=== PATIENT | male | born 2000 | race Caucasian/White ===

== ENCOUNTER 2020-02-29 09:54 | Emergency (ER) | payer OTHER, SELFPAY ==
[2020-02-29 10:00] VITALS: BP 149/96; PULSE 124; RESP 21; TEMP 36.5; O2SAT 99
[2020-02-29 10:33] LABS: Basophils Percent Auto 0.3 % (0.2-1.2); Eosinophils Absolute Auto 0.1 K/mm3 (0-0.3); Eosinophils Percent Auto 0.7 % (0-4.4); Hematocrit 47.1 % (42.0-52.0); Hemoglobin 15.2 g/dL (14.0-18.0); Immature Granulocyte Absolute 0.02 K/mm3 (0.00-0.031); Immature Granulocyte Percent A 0.3 % (0-0.5); Lymphocytes Absolute Auto 1.13 K/mm3 (0.9-3.2); Lymphocytes Percent Auto 16.2 % (18.3-44.2); Mean Corpuscular HGB Conc 32.3 g/dl (32-36); Mean Corpuscular Hemoglobin 28.3 pg (26-34); Mean Corpuscular Volume 87.5 fl (80-100); Mean Platelet Volume 10.6 fl (7.4-10.4); Monocytes Absolute Auto 0.6 K/mm3 (0.1-0.6); Monocytes Percent Auto 8.6 % (2.6-8.5); Neutrophils Absolute Auto 5.2 K/mm3 (1.3-6.7); Neutrophils Percent Auto 73.9 % (45.5-73.1); Platelet Count Result 331 k/mm3 (150-375); Red Blood Count 5.38 M/mm3 (4.6-6.20); Red Cell Distribution Width 12.2 % (11.5-14.5)
[2020-02-29] MEDS: FAMOTIDINE 20 MG/2 ML VIAL IV PUSH (10:50)
[2020-02-29] MEDS: SODIUM CHLORIDE 0.9% IV 1,000 ML 999 ML IV CONT (10:50)
[2020-02-29 10:54] LABS: Alanine Aminotransferase 37 U/L (4-50); Albumin Level 4.7 g/dL (3.7-5.6); Alkaline Phosphatase 89 U/L (58-237); Aspartate Amino Transferase 27 U/L (17-59); Bilirubin,Total 0.4 mg/dL (0.2-1.3); Blood Urea Nitrogen 10 mg/dL (8-21); Calcium 9.5 mg/dL (8.9-10.7); Carbon Dioxide 28 mmol/L (22-30); Chloride 102 mmol/L (98-107); Estimated Glomerular Filt Rate > 60; Glucose 93 mg/dL (75-110); Lipase 55 U/L (23-300); Potassium 3.8 mmol/L (3.4-5.0); Sodium 139 mmol/L (134-143)
[2020-02-29 11:05] LABS: Lactic Acid Reflex 0.7 mmol/L (0.7-2.1)
[2020-02-29 11:46] VITALS: BP 148/72; PULSE 102; RESP 17; O2SAT 98
[2020-02-29 12:06] LABS: Add Urine Microscopic? YES; Amorphous Sediment Urine Few; Appearance Urine Clear (Clear); Bacteria Urine Trace /hpf; Bilirubin Urine Negative (Negative); Blood Urine Negative (Negative); Color Urine Yellow (Yellow); Glucose Urine UA Negative (Negative); Ketones Urine 1+ mg/dL (Negative); Leukocyte Esterase Ur Negative LEU/UL (Negative); Mucus Urine Heavy /lpf; Nitrate Urine Negative (Negative); Protein Urine 1+ mg/dL (Negative); RBC Urine 0-2 /hpf (0-2); Specific Grav Ur 1.017 (1.001-1.035); Squamous Epithelial Cell Urine Rare /hpf (Few); Urobilinogen Urine Negative mg/dL (<2.0); WBC Urine 0-3 /hpf
--- NOTE | 2020-02-29 12:16 | ED.ABDPAIN ---
HPI - Abdominal Pain General Chief Complaint: Abdominal Pain <Kings Dee PA-C - Last Filed: 02/29/20 12:27> Stated Complaint: abd pain n/v/d <JESE Gill Last Filed: 02/29/20 12:27> Time Seen by Provider: 02/29/20 10:07 <Kings Dee PA-C - Last Filed: 02/29/20 12:27> Source: patient <Kings Dee PA-C - Last Filed: 02/29/20 12:27> Mode of arrival: ambulatory <JESE Gill Last Filed: 02/29/20 12:27> History of Present Illness HPI narrative: Patient is a 19-year-old male who presents to emergency department for evaluation of having had an episode of nausea vomiting and diarrhea earlier this morning followed by some more loose stools some nausea vomiting patient took his omeprazole and Carafate which is prescribed by primary care and notes that over the last almost year he has been having GI issues which have been managed primarily by primary care has not seen a specialist. Patient thought it might be a small amount of blood in his emesis today. Patient has had similar occurrences in the past. Patient is unsure as to the etiology of his symptoms <JESE Gill Last Filed: 02/29/20 12:27> Related Data Allergies/Adverse Reactions: Allergies Allergy/AdvReac Type Severity Reaction Status Date / Time No Known Allergies Allergy Verified 02/29/20 10:12 <Kings Dee PA-C - Last Filed: 02/29/20 12:27> Review of Systems Review of Systems: All systems reviewed & are unremarkable except as noted in HPI and below <Kings Dee PA-C - Last Filed: 02/29/20 12:27> PMFSH Social History Social History: Social History Smoking status: Never smoker Alcohol intake: never Gender identity (if verbalized by the patient): Male <JESE Gill Last Filed: 02/29/20 12:27> Exam Narrative: Exam Narrative: GENERAL: Well-appearing, well-nourished, and in no acute distress. HEAD: Normocephalic, atraumatic. EYES: PERRLA and EOMI. ENT: Nares clear, no rhinorrhea or epistaxis. Mucous membranes moist. Oropharynx without tonsillar hypertrophy exudate or other lesions. CHEST: Clear to auscultation. No respiratory distress. No wheezes rales or rhonchi HEART: Regular rate and rhythm. No murmur heard. Normal peripheral pulses. ABDOMEN: Soft, nontender, nondistended EXTREMITIES: Normal range of motion. No edema. SKIN: Warm, dry, no rash. NEURO: No focal deficits. Alert and oriented x3. Cranial nerves II through XII grossly intact. Normal speech PSYCH: Normal mood and affect. <JESE Gill Last Filed: 02/29/20 12:27> Course Course Emergency Course: Patient in the room resting comfortably feeling much better at this time was given antacids and fluids tolerating p.o. intake without emesis Aware of case findings treatment plan and diagnosis agreeing to follow-up as instructed with gastroenterology <JESE Gill Last Filed: 02/29/20 12:27> Vital Signs Vital signs: Vital Signs Temperature 97.7 F 02/29/20 10:00 Pulse Rate 124 H 02/29/20 10:00 Respiratory Rate 21 H 02/29/20 10:00 Blood Pressure 149/96 H 02/29/20 10:00 Pulse Oximetry 99 02/29/20 10:00 Temperature 97.7 F 02/29/20 10:00 Pulse Rate 89 02/29/20 12:37 Respiratory Rate 17 02/29/20 12:37 Blood Pressure 138/72 02/29/20 12:37 Pulse Oximetry 98 02/29/20 12:37 <Kings Dee PA-C - Last Filed: 02/29/20 12:27> Vital Signs Temperature 97.7 F 02/29/20 10:00 Pulse Rate 124 H 02/29/20 10:00 Respiratory Rate 21 H 02/29/20 10:00 Blood Pressure 149/96 H 02/29/20 10:00 Pulse Oximetry 99 02/29/20 10:00 Temperature 97.7 F 02/29/20 10:00 Pulse Rate 89 02/29/20 12:37 Respiratory Rate 17 02/29/20 12:37 Blood Pressure 138/72 02/29/20 12:37 Pulse Oximetry 98 02/29/20 12:37 <Amanda Mary MD - Last Filed: 02/28
[2020-02-29 12:37] VITALS: BP 138/72; PULSE 89; RESP 17; O2SAT 98
== END 2020-02-29 12:38 | disposition home or self-care (01) ==
PROVIDERS: Emergency Medicine Emergency Medical Services; Emergency Provider Emergency Medicine; PCP Family Medicine
DX: R10.9 Unspecified abdominal pain (principal)
CPT/HCPCS: 36415; 80053; 81001; 83605; 83690; 85025; 96361; 96374; 99284; J7030

== ENCOUNTER → 2020-06-05 09:29 | Outpatient (CLI) | payer OTHER, SELFPAY ==
--- NOTE | ~2020-06-05 | MR_ITS ---
EXAMINATION: MR thoracic spine wo con DATE: 06/05/2020 10:30 INDICATION: Left shoulder pain TECHNIQUE: Magnetic resonance imaging (MRI) of the thoracic spine was performed without intravenous c ontrast. Sagittal localizer T1-weighted FSE of the cervicothoracic spine was obtained. Thoracic spine sequences included sagittal T2-weighted FSE, sagittal T1-weighted SE, Sagittal T2-weighted FS FSE, a nd axial T2-weighted FSE. COMPARISON: None FINDINGS: Alignment is normal.Minimal likely physiologic anterior wedging at T11 and T12. Remaining vertebral b jr heights are normal. Normal marrow signal.Normal intervertebral disc heights and signal. Tiny righ t paracentral disc protrusion at T3-T4. The remaining discs do not extend beyond the endplate margins . No central canal stenosis. No neural foraminal stenosis. There is normal spinal cord signal. IMPRESSION: 1. Tiny right paracentral disc protrusion at T3-T4 with no significant central canal stenosis. 2. Minimal likely physiologic anterior wedging at T11 and T12. Reviewed, dictated and finalized at location B.
--- NOTE | ~2020-06-05 | MR_ITS ---
EXAMINATION: MR shoulder LT wo con DATE: 06/05/2020 10:31 INDICATION: Left shoulder pain TECHNIQUE: Magnetic resonance imaging (MRI) of the left shoulder was performed without intravenous co ntrast. Sequences included axial PD-weighted FS FSE, coronal oblique PD-weighted FS FSE, coronal obli que T2-weighted FS FSE, sagittal PD-weighted FS FSE, and sagittal T1-weighted SE. COMPARISON: Left shoulder radiographs dated 05/23/2020 FINDINGS: Coracoacromial arch: The acromion undersurface is curved in morphology (type II). The coracoacromial ligament is normal. A cromioclavicular joint is normal. Rotator cuff: The supraspinatus, infraspinatus and teres minor tendons are normal. The subscapularis tendon is norm al. Normal rotator cuff muscle bulk and signal. Biceps tendon, glenoid labrum and glenohumeral cartilage: Long head of the biceps tendon is normal. Glenoid labrum is normal with normal subtle labral sulcus a nd foramen at the anterosuperior glenoid. Glenohumeral cartilage is normal. Fluid: Physiologic amount of fluid in the glenohumeral joint and biceps tendon sheath. No loose osteochondra l bodies. Small amount of fluid in the subacromial/subdeltoid bursa consistent with mild bursitis. Bones: Normal marrow signal with no edema, fracture or abnormal marrow replacing process. IMPRESSION: 1. Normal left shoulder MRI. Reviewed, dictated and finalized at location B.
== END ==
PROVIDERS: Visit Provider Nurse Practitioner Family
DX: M25.512 Pain in left shoulder (principal)
CPT/HCPCS: 72146; 73221

== ENCOUNTER 2021-04-10 18:06 | Outpatient (CLI) | payer OTHER, SELFPAY ==
--- NOTE | ~2021-04-10 | XR_ITS ---
XR hip RT min 2V DATE: 04/10/2021 18:25 INDICATION: Right hip and groin pain. No injury. TECHNIQUE: AP, lateral, crosstable lateral views of right hip COMPARISON: None FINDINGS: The pubic symphysis and sacroiliac joints are intact. No fracture or dislocation, avascular necrosis or bone destruction of the right hip. Inferomedial right hip joint space narrowing is suggested. Consider comparison left hip views. IMPRESSION: Possible inferomedial right hip joint space narrowing; consider left hip comparison views Reviewed, dictated and finalized at location A. IMPRESSION: Possible inferomedial right hip joint space narrowing; consider lef t hip comparison views
--- NOTE | ~2021-04-10 | XR_ITS ---
XR shoulder RT min 2V DATE: 04/10/2021 18:27 INDICATION: Anterior proximal humeral pain. No injury. TECHNIQUE: 4 views COMPARISON: None FINDINGS: No fracture or dislocation, periosteal reaction or bone destruction or abnormal soft tissue calcification. Normal alignment at the acromioclavicular and glenohumeral joints. IMPRESSION: Normal examination Reviewed, dictated and finalized at location A. IMPRESSION: Normal examination
== END 2021-04-10 18:07 | disposition home or self-care (01) ==
LOC: ANHIMG 18:09
PROVIDERS: PCP Family Medicine; Visit Provider Physician Assistant
DX: M25.559 Pain in unspecified hip (principal); M25.519 Pain in unspecified shoulder
CPT/HCPCS: 73030; 73502

== ENCOUNTER 2021-04-12 18:30 | Outpatient (CLI) | payer OTHER, SELFPAY ==
--- NOTE | ~2021-04-12 | XR_ITS ---
XR hip LT min 2V DATE: 04/12/2021 18:46 INDICATION: Left hip pain TECHNIQUE: AP, lateral, coned lateral lumbosacral views COMPARISON: None FINDINGS: No fracture or dislocation, avascular necrosis or bone destruction. Left hip joint space is well preserved. IMPRESSION: Asymmetric right hip joint space narrowing inferomedially Reviewed, dictated and finalized at location A.
== END 2021-04-12 18:31 | disposition home or self-care (01) ==
LOC: ANHIMG 18:32
PROVIDERS: PCP Family Medicine; Visit Provider Physician Assistant
DX: M25.559 Pain in unspecified hip (principal); R93.6 Abnormal findings on diagnostic imaging of limbs
CPT/HCPCS: 73502

== ENCOUNTER → 2021-05-31 14:41 | Outpatient (CLI) | payer OTHER, SELFPAY ==
--- NOTE | ~2021-05-31 | MR_ITS ---
EXAMINATION: MR hip RT wo con DATE: 05/31/2021 15:43 INDICATION: Right hip pain TECHNIQUE: Magnetic resonance imaging (MRI) of the right hip was performed without intravenous contr ast. Sequences included full-field axial PD-weighted FS FSE and T1-weighted FSE, coronal of the pelvi s with PD-weighted FS FSE, T2-weighted FSE and T1-weighted FSE, small field of view of the right hip with axial PD-weighted FS FSE, sagittal PD-weighted FS FSE, coronal PD-weighted FS FSE and coronal T2 weighted FSE. Additional radial T1-weighted FGR oriented orthogonal to the acetabular rim were obt ained for evaluation of the labrum. COMPARISON: Right hip radiographs dated 04/10/2021 FINDINGS: Bones/labrum/cartilage: Alignment is normal. No fracture, avascular necrosis or pathologic marrow replacing process. Low sig nal intensity bone islands in the proximal right femoral diaphysis, left femoral head and subtrochant madeline proximal left femur. Labrum is normal. Mild osteoarthritis at the right hip with partial thickne ss cartilage loss resulting in nonuniform joint space narrowing at the posterior superior aspect of t he joint space. The cartilage surface appears smooth and there are no degenerative subchondral change s. Visualized lower lumbar spine and bilateral sacral iliac joints are normal. Fluid: Symmetric physiologic amount of fluid within both hip joints. No bursitis or other abnormal fluid col lections. Soft tissues: Normal and symmetric muscle bulk and signal in the pelvis and visualized proximal thighs. The iliopso as, gluteal and proximal hamstring tendons are normal. Limited evaluation of visceral organs of the p yudith is unremarkable. No pathologically enlarged pelvic/inguinal lymphadenopathy. IMPRESSION: 1. Mild right hip osteoarthritis with normal labrum. Otherwise unremarkable right hip MRI. Reviewed, dictated and finalized at location A. IMPRESSION: 1. Mild right hip osteoarthritis with normal labrum. Otherwise unremarkable rig ht hip MRI.
== END ==
PROVIDERS: Visit Provider Nurse Practitioner Family
DX: M16.11 Unilateral primary osteoarthritis, right hip (principal)
CPT/HCPCS: 73721

== ENCOUNTER 2024-05-19 12:09 | Emergency (ER) | payer OTHER, SELFPAY ==
[2024-05-19] VITALS (10 sets, daily range): BP systolic 108–131; BP diastolic 60–74; PULSE 117–135; RESP 16–23; TEMP 36.7–39.3; O2SAT 92–99
--- NOTE | ~2024-05-19 | CT_ITS ---
CT of the Abdomen and Pelvis: Indication: Abdominal pain Technique: 2.5 mm axial scans were obtained through the abdomen and pelvis following intravenous adm inistration of 100 cc of Omnipaque 350. Dose reduction technique was used on this scan by utilizing a utomated exposure control and iterative reconstruction technique. The dose-length product (DLP) was 6 25.80 mGy-cm. Findings: Scans through the lung bases are unremarkable. The liver, spleen, pancreas, gallbladder, adrenals and kidneys are within normal limits. No evidence of aortic aneurysm. No lymphadenopathy. There is wall thickening of multiple distal small bowel loops in the pelvis. No distinct abscess or f ree air. No bowel obstruction. Images through the pelvis were performed. Urinary bladder unremarkable. No pelvic mass seen. No ascit es. Impression: Nonspecific small bowel infectious/inflammatory enteritis, extensively involving pelvic small bowel l oops. Reviewed, dictated and finalized at [facility]. Impression: Nonspecific small bowel infectious/inflammatory enteritis, extensively involvin g pelvic small bowel loops.
--- NOTE | ~2024-05-19 | XR_ITS ---
XR chest 1V portable Ordering provider: Adiel Potts MD History: 23 years Male with . FEVER, WEAKNESS X 4WKS . Comparison: June 04, 2020 FINDINGS: MEDIASTINUM: The cardiac silhouette is not enlarged. LUNGS: No infiltrates, effusions or pneumothorax. OTHER: No free air under the diaphragm. IMPRESSION: No acute cardiopulmonary pathology. Reviewed, dictated and finalized at location A.
--- NOTE | 2024-05-19 12:26 | ECG_ITS ---
Test Date: 2024-05-19 13:03:50 Measurements Intervals [place] Rate: 118 P: 18 HI: 146 QRS: 7 QRSD: 105 T: 29 QT: 295 QTc: 415 Interpretive Statements SINUS TACHYCARDIA INCOMPLETE RIGHT BUNDLE BRANCH BLOCK ABNORMAL ECG ABNORMAL RHYTHM ECG No previous ECG available for comparison Electronically Signed On 05-19-2024 13:14:48 CDT by Dave Harrison D.O.
--- NOTE | 2024-05-19 12:36 | ED.GENADULT ---
HPI - General Adult General Chief complaint: Nausea/Vomiting/Diarrhea Stated complaint: N/V x1 day, diarrhea x2 weeks Time Seen by Provider: 05/19/24 12:19 History of Present Illness HPI narrative: This is a 23-year-old male presenting ED with chief complaint of flu-like symptoms. For the last week patient has been having headaches body aches fevers nausea vomiting and diarrhea. He has also been having some crampy lower abdominal pain. He denies chest pain or difficulty breathing although he has had a dry cough. Related Data Allergies Allergy/AdvReac Type Severity Reaction Status Date / Time No Known Allergies Allergy Verified 05/19/24 12:50 [facility] Past Medical History Medical History Acute gastritis Chronic headaches Diarrhea Impingement syndrome, shoulder, left Labral tear of hip joint Labral tear of long head of left biceps tendon Left shoulder pain Nausea & vomiting Scapular dysfunction Scoliosis of thoracic spine Seasonal allergies Stomach pain Subacromial bursitis of left shoulder joint Vision abnormalities Social History Social History Smoking status: Never smoker Alcohol intake: never Substance use: unknown Occupation/Education: occupation 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 Gender identity (if verbalized by the patient): Male Exam Narrative: APPEARANCE: No apparent distress. Head: atraumatic. EYES: EOMI, NOSE: Atraumatic NECK: Trachea midline RESPIRATORY: No increased rate of breathing, CTAB CARDIOVASCULAR: Tachycardic, no peripheral edema ABDOMINAL: Soft, mild tenderness in the lower quadrants equal on left and right MUSCULOSKELETAl: No obvious deformities NEURO: Alert. Moving 4/4 extremities SKIN:: Warm, dry. Normal color PSYCHIATRIC: Normal affect Course Vital Signs Vital signs: Vital Signs Temperature 102.7 F H 05/19/24 12:12 Pulse Rate 129 H 05/19/24 12:12 Respiratory Rate 20 05/19/24 12:12 Blood Pressure 131/74 05/19/24 12:12 Pulse Oximetry 99 05/19/24 12:12 Oxygen Delivery Room Air 05/19/24 12:12 Temperature 98.0 F 05/19/24 14:12 Pulse Rate 122 H 05/19/24 13:59 Respiratory Rate 22 H 05/19/24 13:46 Blood Pressure 108/60 05/19/24 13:45 Pulse Oximetry 95 05/19/24 13:46 Oxygen Delivery Room Air 05/19/24 12:12 Medical Decision Making [facility] Narrative Medical decision making narrative: -Course: 23-year-old male presenting with nausea vomiting diarrhea and fevers. CT abdomen pelvis showed inflammation of the small bowel. Patient was given fluid resuscitation, antipyretics and antiemetics. On re-evaluation patient is feeling much better. He is tolerating p.o.. He is still slightly tachycardic although it is line his fever. We discussed admission versus discharge and given the patient's overall health and young age he would like a trial of outpatient management. Patient was educated on strict return precautions. He has been given medications in the liquid form as he has trouble swallowing pills. He is encouraged to return to the ED if his condition does not improve, he develops severe abdominal pain bloody diarrhea intractable nausea vomiting. -DDX includes but is not limited to: Pneumonia, viral syndrome gastroenteritis, UTI, sepsis -Independent interpretation of studies: White count 8.5 Metabolic panel normal Urine not indicative infection Viral swabs negative Chest x-ray normal CT abdomen pelvis showed enteritis Independent EKG interpretation: Rhythm [sinus], Rate [118], [place] -[normal], MA -[normal], QRS [narrow], QTC [normal], T waves -[negative for concerning inversions], ST Segments - [Negative for concerning elevations] Final interpretations: Sinus tachycardia -Interventions: 3 L normal saline Toradol, Zofran, Tylenol -Shared decision making / Disposition: Discharge Vi
[2024-05-19] MEDS: SODIUM CHLORIDE 0.9% IV 3,000 ML 999 ML IV CONT (12:51)
[2024-05-19] MEDS: KETOROLAC 15 MG/ML VIAL (*BKC) IV PUSH (12:53)
[2024-05-19 12:55] LABS: Add Urine Microscopic? YES; Appearance Urine Clear (Clear); Bacteria Urine None Seen /hpf; Bilirubin Urine Negative (Negative); Blood Urine Negative (Negative); Color Urine Yellow (Yellow); Glucose Urine UA Negative (Negative); Ketones Urine Trace mg/dL (Negative); Leukocyte Esterase Ur Negative LEU/UL (Negative); Nitrate Urine Negative (Negative); Non Pathogenic Casts 0-2; Protein Urine Trace mg/dL (Negative); Specific Grav Ur 1.018 (1.001-1.035); Squamous Epithelial Cell Urine None Seen /hpf (Few); WBC Urine 0-5 /hpf (0-3)
[2024-05-19 12:57] LABS: Basophils Percent Auto 0.2 % (0.2-1.2); Eosinophils Percent Auto 0.1 % (0-4.4); Hematocrit 42.5 % (42.0-52.0); Hemoglobin 13.5 g/dL (14.0-18.0); Immature Granulocyte Absolute 0.04 K/mm3 (0.00-0.031); Immature Granulocyte Percent A 0.5 % (0-0.5); Lymphocytes Absolute Auto 0.17 K/mm3 (0.9-3.2); Mean Corpuscular HGB Conc 31.8 g/dl (32-36); Mean Corpuscular Hemoglobin 26.6 pg (26-34); Mean Corpuscular Volume 83.7 fl (80-100); Mean Platelet Volume 9.5 fl (7.4-10.4); Monocytes Absolute Auto 0.5 K/mm3 (0.1-0.6); Monocytes Percent Auto 5.3 % (2.6-8.5); Neutrophils Absolute Auto 7.9 K/mm3 (1.3-6.7); Neutrophils Percent Auto 91.9 % (45.5-73.1); Platelet Count Result 309 k/mm3 (150-375); Red Blood Count 5.08 M/mm3 (4.6-6.20); Red Cell Distribution Width 13.5 % (11.5-14.5); White Blood Count 8.5 K/mm3 (4.5-10.0)
[2024-05-19] MEDS: ACETAMINOPHEN ELIXIR 325 MG/10.15 ML UDC 975 MG PO (12:58)
[2024-05-19 13:05] LABS: Chloride 97 mmol/L (98-107)
[2024-05-19 13:14] LABS: Alanine Aminotransferase 53 U/L (6-50); Albumin Level 4.5 g/dL (3.5-5.1); Alkaline Phosphatase 107 U/L (38-126); Anion Gap 9 mmol/L (4-12); Aspartate Amino Transferase 43 U/L (17-59); Bilirubin,Total 0.6 mg/dL (0.2-1.3); Blood Urea Nitrogen 9 mg/dL (9-20); Calcium 8.7 mg/dL (8.4-10.2); Carbon Dioxide 29 mmol/L (22-30); Estimated CRCL calculation 130 ml/min; Estimated Glomerular Filt Rate > 60; Glucose 108 mg/dL (65-110); Lipase 45 U/L (23-300); Potassium 3.9 mmol/L (3.4-5.0); Sodium 135 mmol/L (137-145)
[2024-05-19 13:24] LABS: Influenza A QL RT-PCR Negative (Negative); Influenza B QL RT-PCR Negative (Negative); RSV RNA, RT-PCR Negative (Negative); SARS-CoV-2 RNA PCR Negative (Negative)
== END 2024-05-19 15:20 | disposition home or self-care (01) ==
PROVIDERS: Emergency Medicine; Emergency Provider Emergency Medicine
DX: K52.9 Noninfective gastroenteritis and colitis, unspecified (principal); Z20.822 Contact with and (suspected) exposure to COVID-19
CPT/HCPCS: 36415; 71045; 74177; 80053; 81001; 83690; 85025; 87637; 93005; 96361; 96374; 99284; A9270; J1885; J7030; Q9967

== ENCOUNTER 2024-07-20 13:33 | Inpatient (IN) | payer OTHER, SELFPAY ==
--- NOTE | ~2024-07-20 | CT_ITS ---
EXAMINATION: CT abdomen pelvis w con DATE: 07/20/2024 16:21 INDICATION: RLQ pain TECHNIQUE: Computed tomography (CT) of the abdomen and pelvis was performed with 100 mL Omnipaque-350 intravenous contrast. Automated exposure control and iterative reconstruction technique were employe d. The dose-length product was 415.66 mGy-cm. COMPARISON: None. FINDINGS: Lower thorax: Mild bilateral gynecomastia. Liver: Small focus of branching intrahepatic gas in the peripheral and anti-dependent portion of the left lobe. Biliary/Gallbladder: Gallbladder is normal. No bile duct dilation. Pancreas: No mass or duct dilation. Spleen: Normal. Adrenals:No mass. Kidneys: No suspicious mass, obstructing stone, or hydronephrosis. GI tract: Distal ileal wall edema. No small or large bowel dilation. Normal appendix. Mesentery/Peritoneum: No free air. Irregular soft tissue density in the mesentery of the deep pelvis between a loop of edematous ileum and the adjacent sigmoid (axial image [id number]), with mesenteric edema, hyperemia, and minimal mesenteric fluid. Retroperitoneum: No mass. Pelvis: Pelvic organs are within normal limits. Soft Tissues: Soft tissues and body wall unremarkable. Bones: No acute osseous finding. IMPRESSION: Ileal enteritis with adjacent phlegmon/early abscess and possible fistulous connection to the adjacen t sigmoid. Intrahepatic gas, concerning for portal venous gas, which can be seen with ischemic bowel, inflammato ry bowel disease, and pelvic abscess. Correlate for clinical findings of sepsis. Results reported telephonically to Dr. Ferreira by Dr. Buitrago at 4:49 PM on 07/20/2024. Reviewed, dictated and finalized at location K. [employer] IMPRESSION: Ileal enteritis with adjacent phlegmon/early abscess and possible fistulous con nection to the adjacent sigmoid. Intrahepatic gas, concerning for portal venous gas, which can be seen with isch emic bowel, inflammatory bowel disease, and pelvic abscess. Correlate for clini joanna findings of sepsis. Results reported telephonically to Dr. Ferreira by Dr. Buitrago at 4:49 PM on .
--- NOTE | ~2024-07-20 | MR_ITS ---
EXAMINATION: MR abdomen wo/w con DATE: 07/21/2024 13:12 INDICATION: Crohn disease. Right lower quadrant abdominal pain. TECHNIQUE: Magnetic resonance imaging (MRI) of the abdomen was performed without and with 17 mL Multi Aimee intravenous contrast. COMPARISON: CT abdomen and pelvis 07/20/2024 FINDINGS: The liver, gallbladder, pancreas, adrenal glands, and kidneys are normal. There is an 8 mm cyst in th e spleen. There are no dilated loops of bowel. Partially visualized is wall thickening of the termina l ileum. There are no pathologically enlarged lymph nodes. There is no free intraperitoneal fluid. IMPRESSION: 1. Partially visualized terminal ileitis, consistent with Crohn disease. Reviewed, dictated and finalized at location A. BURNER
--- NOTE | ~2024-07-20 | MR_ITS ---
EXAMINATION: MR pelvis wo/w con DATE: 07/21/2024 13:13 INDICATION: Crohn disease. TECHNIQUE: Magnetic resonance imaging (MRI) of the pelvis was performed without and with 17 mL MultiH ance intravenous contrast. COMPARISON: CT abdomen and pelvis 07/20/2024 FINDINGS: There are no dilated loops of bowel. There is wall thickening of the distal 30 cm of terminal ileum w ith surrounding fat stranding. The fat stranding abuts the rectosigmoid, which demonstrates wall thic kening. There is no drainable abscess. There are no pathologically enlarged lymph nodes. There is no free intraperitoneal fluid. IMPRESSION: 1. Terminal ileitis with fistula to the wall of the rectosigmoid, consistent with Crohn disease. Reviewed, dictated and finalized at location A. [employer]EL[employer] IMPRESSION: 1. Terminal ileitis with fistula to the wall of the rectosigmoid, consistent wi th Crohn disease.
[2024-07-20 13:37] VITALS: BP 120/79; PULSE 122; RESP 16; TEMP 37.2; O2SAT 100
[2024-07-20 14:10] LABS: Basophils Percent Auto 0.2 % (0.2-1.2); Hematocrit 41.5 % (42.0-52.0); Hemoglobin 13.2 g/dL (14.0-18.0); Immature Granulocyte Absolute 0.03 K/mm3 (0.00-0.031); Immature Granulocyte Percent A 0.5 % (0-0.5); Lymphocytes Absolute Auto 0.25 K/mm3 (0.9-3.2); Lymphocytes Percent Auto 3.8 % (18.3-44.2); Mean Corpuscular HGB Conc 31.8 g/dl (32-36); Mean Corpuscular Hemoglobin 26.4 pg (26-34); Mean Platelet Volume 9.7 fl (7.4-10.4); Monocytes Absolute Auto 0.4 K/mm3 (0.1-0.6); Monocytes Percent Auto 6.2 % (2.6-8.5); Neutrophils Absolute Auto 5.9 K/mm3 (1.3-6.7); Neutrophils Percent Auto 89.3 % (45.5-73.1); Platelet Count Result 344 k/mm3 (150-375); Red Cell Distribution Width 12.9 % (11.5-14.5); White Blood Count 6.6 K/mm3 (4.5-10.0)
[2024-07-20 14:20] LABS: Alanine Aminotransferase 29 U/L (6-50); Albumin Level 4.5 g/dL (3.5-5.1); Alkaline Phosphatase 90 U/L (38-126); Anion Gap 11 mmol/L (4-12); Aspartate Amino Transferase 29 U/L (17-59); Bilirubin,Total 0.7 mg/dL (0.2-1.3); Blood Urea Nitrogen 8 mg/dL (9-20); Calcium 8.9 mg/dL (8.4-10.2); Carbon Dioxide 26 mmol/L (22-30); Chloride 97 mmol/L (98-107); Estimated CRCL calculation 130 ml/min; Estimated Glomerular Filt Rate > 60; Glucose 102 mg/dL (65-110); Lipase 36 U/L (23-300); Potassium 3.6 mmol/L (3.4-5.0); Sodium 134 mmol/L (137-145)
[2024-07-20 16:04] LABS: Add Urine Microscopic? YES; Appearance Urine Clear (Clear); Bacteria Urine None Seen /hpf; Bilirubin Urine Negative (Negative); Blood Urine Negative (Negative); Color Urine Yellow (Yellow); Glucose Urine UA Negative (Negative); Ketones Urine 3+ mg/dL (Negative); Leukocyte Esterase Ur Negative LEU/UL (Negative); Nitrate Urine Negative (Negative); Non Pathogenic Casts 0-2; Protein Urine 1+ mg/dL (Negative); RBC Urine 0-2 /hpf (0-2); Squamous Epithelial Cell Urine None Seen /hpf (Few); WBC Urine 0-5 /hpf (0-3)
[2024-07-20] MEDS: KETOROLAC 15 MG/ML VIAL (*BKC) IV PUSH (16:27)
[2024-07-20] MEDS: LACTATED RINGERS 1,000 ML 999 ML IV CONT (16:27)
[2024-07-20] MEDS: ONDANSETRON INJ 4 MG/2 ML VIAL IV PUSH ×2 (16:27→21:20)
--- NOTE | 2024-07-20 17:02 | ED.NAVMDI ---
HPI - Nausea/Vomiting/Diarrhea General Chief complaint: Nausea/Vomiting/Diarrhea Stated complaint: back pain, fever, vomiting and diarrhea Time Seen by Provider: 07/20/24 15:44 History of Present Illness HPI Narrative: 23-year-old otherwise healthy male presenting to the emergency room with chief complaint of right lower quadrant abdominal pain associated with nausea and vomiting as well as diarrhea. He has been having intermittent fever since Friday and some back discomfort. Patient was seen in April was similar symptoms and diagnosed with enteritis and sent home with a course of antibiotics and symptom controlling medications. He had improvement at that time and has been doing well since. Has not followed up with his primary care provider. Today presents with similar symptoms to what brought him in April. Denies any chest pain, difficulty breathing, headache, vision changes, bloody diarrhea, difficulty urinating or any masses or hernias. No trauma or other recent illnesses. Related Data Allergies Allergy/AdvReac Type Severity Reaction Status Date / Time No Known Allergies Allergy Verified 07/20/24 15:53 Review of Systems Review of Systems: As reviewed above in [facility]PI [facility] Past Medical History Medical History Acute gastritis Chronic headaches Diarrhea Impingement syndrome, shoulder, left Labral tear of hip joint Labral tear of long head of left biceps tendon Left shoulder pain Nausea & vomiting Scapular dysfunction Scoliosis of thoracic spine Seasonal allergies Stomach pain Subacromial bursitis of left shoulder joint Vision abnormalities Social History Social History Smoking status: Never smoker Alcohol intake: never Substance use: unknown Occupation/Education: occupation 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 Gender identity (if verbalized by the patient): Male Exam Narrative: GENERAL: Overall uncomfortable appearing but not in acute distress, able answer my questions appropriately. Appears well-developed and well-nourished HEAD: [Normocephalic, atraumatic.] EYES: [PERRLA and EOMI.] ENT: Nares clear, no rhinorrhea or epistaxis. Mucous membranes moist. NECK: Supple. CHEST: [Clear to auscultation. No respiratory distress.] HEART: [Regular rate and rhythm]. No murmur heard. [Normal peripheral pulses.] ABDOMEN: [Soft, nondistended], tenderness to palpation in the right lower quadrant and right flank, [No rigidity or guarding] negative Ferris sign, negative Rovsing and psoas sign EXTREMITIES: Normal range of motion. [No edema.] SKIN: Warm, dry, no rash. NEURO: [No focal deficits]. Alert and oriented [x3.] PSYCH: [Normal mood and affect.] Course Vital Signs Vital signs: Vital Signs Temperature 37.2 C 07/20/24 13:37 Pulse Rate 122 H 07/20/24 13:37 Respiratory Rate 16 07/20/24 13:37 Blood Pressure 120/79 07/20/24 13:37 Pulse Oximetry 100 07/20/24 13:37 Temperature 37.2 C 07/20/24 13:37 Pulse Rate 110 H 07/20/24 17:46 Respiratory Rate 20 07/20/24 17:46 Blood Pressure 136/73 07/20/24 17:46 Pulse Oximetry 99 07/20/24 17:46 MDM - Nausea/Vomiting/Diarrhea MDM Narrative Medical decision making narrative: 23-year-old male presenting with nonspecific nausea, vomiting, diarrhea and back pain. He has had intermittent fever since Friday. Was seen in April for similar findings and was discovered to have enteritis with some concerning CT scan findings that required antibiotics. He has a tender right lower quadrant and does appear uncomfortable but not any acute distress. He is tachycardic with a pulse of 120 but afebrile. No hypoxia, blood pressure concerns. Presently given the right lower quadrant abdominal pain differential for intra-abdominal process such as appendicitis, enteritis, small bowel obstruction, cholelithiasis, pancreatitis, renal stone. Inflammatory bowel disease or IBS also possible. A workup was ordered including a CBC, CMP, lipase, urinalysis and a CT scan with IV contrast. We gave him symptom control with Toradol for pain, Zofran and fluid bolus for symptom control. Laboratory studies showed no leukocytosis or anemia. Normal platelet level. Electrolytes all within normal limits, normal renal function panel, normal hepatic function panel, negative lipase. Urinalysis without any signs of infection but did have 3+ ketones and 1+ protein. CT scan of the abdomen pelvis was independent reviewed by myself and does have some concerning findings in the right lower quadrant with significant inflammatory changes. Radiologist Dr. Buitrago called me over the phone to discuss the CT findings. He has ileal enteritis with adjacent phlegmon and potentially early abscess formation with a possible fistulous connection to the adjacent sigmoid colon. There is intrahepatic free gas consistent with portal venous gas which raises suspicion for inflammatory bowel disease or even ischemic bowel in the right clinical context. Lactic acid was ordered this time including a CRP and ESR, lactic acid was negative but the inflammatory markers were elevated. Clinical picture consistent with inflammatory bowel disease at this time and juncture. I did consult Gastroenterology Dr. Ty over the phone we discussed patient's findings of the CT scan, his clinical exam, laboratory assessment and plan of care going forward. He did concur that this sure sounded like a patient with a picture resembling inflammatory bowel disease such as Crohn's colitis. Recommendations for antibiotic therapy including ciprofloxacin Flagyl and to be made NPO at midnight fo any potential procedures such as endoscopies. Patient requires admission to the hospital at this time. I did discuss the case with the hospitalist being covered by the [facility] at this time and he was accepted to the [facility] for further evaluation and treatment on inpatient basis. I informed the patient of his CT scan findings and plan of care for admission and GI evaluation and he was agreeable to the plan of care and successfully admitted this time from the ER. Medical Records Attestation: I reviewed the patient's medical records. Lab Data Attestation: I reviewed the patient's lab results. 07/20/24 14:00 07/20/24 14:00 Labs: Lab Results 07/20/24 07/20/24 07/20/24 Range/Units 13:59 14:00 15:54 WBC 6.6 (4.5-10.0) K/mm3 RBC 5.00 (4.6-6.20) M/mm3 Hgb 13.2 L (14.0-18.0) g/dL Hct 41.5 L (42.0-52.0) % MCV 83.0 (80-100) fl MCH 26.4 (26-34) pg MCHC 31.8 L (32-36) g/dl RDW 12.9 (11.5-14.5) % Plt Count 344 (150-375) k/mm3 MPV 9.7 (7.4-10.4) fl Immature Gran % (Auto) 0.5 (0-0.5) % Neut % (Auto) 89.3 H (45.5-73.1) % Lymph % (Auto) 3.8 L (18.3-44.2) % [place] % (Auto) 6.2 (2.6-8.5) % Eos % (Auto) 0.0 (0-4.4) % Baso % (Auto) 0.2 (0.2-1.2) % Lymph # (Auto) 0.25 L (0.9-3.2) K/mm3 [place] # (Auto) 0.4 (0.1-0.6) K/mm3 Eos # (Auto) 0.0 (0-0.3) K/mm3 Baso # (Auto) 0.0 (0.0-0.1) K/mm3 Abs Immat Gran (auto) 0.03 (0.00-0.031) K/mm3 Absolute Neuts (auto) 5.9 (1.3-6.7) K/mm3 Absolute Nucleated RBC 0.000 (0.0-0.012) K/mm3 Nucleated RBC % 0.0 (0.0-0.2) % ESR (0-20) mm/hr Sodium 134 L (137-145) mmol/L Potassium 3.6 (3.4-5.0) mmol/L Chloride 97 L (98-107) mmol/L Carbon Dioxide 26 (22-30) mmol/L Anion Gap 11 (4-12) mmol/L BUN 8 L (9-20) mg/dL Creatinine 0.90 (0.7-1.3) mg/dL Estim Creat Clear Calc 130 ml/min Estimated GFR > 60 (59 - ) Glucose 102 (65-110) mg/dL Lactic Acid (0.7-2.0) mmol/L Calcium 8.9 (8.4-10.2) mg/dL Total Bilirubin 0.7 (0.2-1.3) mg/dL AST 29 (17-59) U/L ALT 29 (6-50) U/L Alkaline Phosphatase 90 (38-126) U/L C-Reactive Protein 13.8 H (<1.0) mg/dL Total Protein 8.0 (6.3-8.2) g/dL Albumin 4.5 (3.5-5.1) g/dL Lipase 36 (23-300) U/L Urine Color Yellow (Yellow) Urine Appearance Clear (Clear) Urine pH 6.0 (5.0-9.0) Ur Specific [place] 1.020 (1.001-1.035) Urine Protein 1+ H (Negative) mg/dL Urine Glucose (UA) Negative (Negative) mg/dL Urine Ketones 3+ H (Negative) mg/dL Ur Blood (Man) Negative (Negative) Urine Nitrate Negative (Negative) Urine Bilirubin Negative (Negative) Urine Urobilinogen 1.0 (<2.0) mg/dL Leukocyte Esterase Rfl Negative (Negative) JEFF/UL Urine RBC 0-2 (0-2) /hpf Urine WBC 0-5 (0-3) /hpf Ur Squamous Epith Cells None seen (Few) /hpf Urine Bacteria None seen /hpf Urine Casts 0-2 07/20/24 Range/Units 17:13 WBC (4.5-10.0) K/mm3 RBC (4.6-6.20) M/mm3 Hgb (14.0-18.0) g/dL Hct (42.0-52.0) % MCV (80-100) fl MCH (26-34) pg MCHC (32-36) g/dl RDW (11.5-14.5) % Plt Count (150-375) k/mm3 MPV (7.4-10.4) fl Immature Gran % (Auto) (0-0.5) % Neut % (Auto) (45.5-73.1) % Lymph % (Auto) (18.3-44.2) % [place] % (Auto) (2.6-8.5) % Eos % (Auto) (0-4.4) % Baso % (Auto) (0.2-1.2) % Lymph # (Auto) (0.9-3.2) K/mm3 [place] # (Auto) (0.1-0.6) K/mm3 Eos # (Auto) (0-0.3) K/mm3 Baso # (Auto) (0.0-0.1) K/mm3 Abs Immat Gran (auto) (0.00-0.031) K/mm3 Absolute Neuts (auto) (1.3-6.7) K/mm3 Absolute Nucleated RBC (0.0-0.012) K/mm3 Nucleated RBC % (0.0-0.2) % ESR 81 H (0-20) mm/hr Sodium (137-145) mmol/L Potassium (3.4-5.0) mmol/L Chloride (98-107) mmol/L Carbon Dioxide (22-30) mmol/L Anion Gap (4-12) mmol/L BUN (9-20) mg/dL Creatinine (0.7-1.3) mg/dL Estim Creat Clear Calc ml/min Estimated GFR (59 - ) Glucose (65-110) mg/dL Lactic Acid 0.9 (0.7-2.0) mmol/L Calcium (8.4-10.2) mg/dL Total Bilirubin (0.2-1.3) mg/dL AST (17-59) U/L ALT (6-50) U/L Alkaline Phosphatase (38-126) U/L C-Reactive Protein (<1.0) mg/dL Total Protein (6.3-8.2) g/dL Albumin (3.5-5.1) g/dL Lipase (23-300) U/L Urine Color (Yellow) Urine Appearance (Clear) Urine pH (5.0-9.0) Ur Specific [place] (1.001-1.035) Urine Protein (Negative) mg/dL Urine Glucose (UA) (Negative) mg/dL Urine Ketones (Negative) mg/dL Ur Blood (Man) (Negative) Urine Nitrate (Negative) Urine Bilirubin (Negative) Urine Urobilinogen (<2.0) mg/dL Leukocyte Esterase Rfl (Negative) JEFF/UL Urine RBC (0-2) /hpf Urine WBC (0-3) /hpf Ur Squamous Epith Cells (Few) /hpf Urine Bacteria /hpf Urine Casts Imaging Data Attestation: I personally reviewed and interpreted this imaging study as follows: Radiologist's impression: Impressions Abdomen/Pelvis CT 07/20/24 16:23 IMPRESSION: Ileal enteritis with adjacent phlegmon/early abscess and possible fistulous connection to the adjacent sigmoid. Intrahepatic gas, concerning for portal venous gas, which can be seen with ischemic bowel, inflammatory bowel disease, and pelvic abscess. Correlate for clinical findings of sepsis. Results reported telephonically to Dr. Ferreira by Dr. Buitrago at 4:49 PM on 07/20/2024. Critical Care Time Critical Care Time Critical Care Time: Yes Total Critical Care Time: 35 Discharge Plan Discharge Clinical Impression: Regional enteritis of ileum, Bowel disease, inflammatory Patient Disposition: Still a Patient Condition: Guarded Prognosis Prescriptions: No Action sulfamethoxazole-trimethoprim 200-40 mg/5 mL suspension 20 ml PO BID 5 Days Qty: 200 0RF ibuprofen [Children's Ibuprofen] 100 mg/5 mL suspension 600 mg PO TID PRN (Reason: fever) 7 Days Qty: 473 0RF ondansetron 4 mg tablet,disintegrating 4 mg PO Q8H PRN (Reason: nausea and vomiting) Qty: 30 0RF Follow-up/Referrals: UNKNOWN,DOCTOR [Primary Care Provider] - Time of Disposition: 18:47
[2024-07-20 17:42] LABS: Lactic Acid Reflex 0.9 mmol/L (0.7-2.0)
[2024-07-20 17:46] VITALS: BP 136/73; PULSE 110; RESP 20; O2SAT 99
[2024-07-20] MEDS: CIPROFLOXACIN 400 MG/D5W 200ML 200 ML 200 MG IVPB (17:48)
[2024-07-20 17:52] LABS: Erythrocyte Sedimentation Rate 81 mm/hr (0-20)
[2024-07-20 17:56] LABS: CRP 13.8 mg/dL (<1.0)
[2024-07-20] MEDS: metroNIDAZOLE 500 MG/ISO 100ML 500 MG/100 ML BAG 100 MG IVPB (19:05)
[2024-07-20 19:12] VITALS: BMI 23.2
--- NOTE | 2024-07-20 20:01 | ADMGEN ---
This patient, Jamel Valero, was admitted to [facility] Room 319-01. Patient/family oriented to hospital policies and general routines including ID bracelet, bed and alarms, visiting hours, pain management, procedures, bathroom and other care routines, personal items, smoking policy, room service/diet, and visiting hours. Information on how to activate the Rapid Response Team has been discussed. Patient/Family are encouraged to report perceived risks to care and to ask questions if they do not understand what they are told or what they should do.
[2024-07-20 21:17] VITALS: BP 145/76; PULSE 108; RESP 14; TEMP 36.9; O2SAT 98; BMI 23.3
[2024-07-21 05:18] VITALS: BP 121/78; PULSE 102; RESP 16; TEMP 36.4; O2SAT 99
[2024-07-21] MEDS: metroNIDAZOLE 500 MG/ISO 100ML 500 MG/100 ML BAG 100 MG IVPB ×3 (06:01→21:59)
[2024-07-21] MEDS: CIPROFLOXACIN 400 MG/D5W 200ML 200 ML 200 MG IVPB ×2 (07:01→17:43)
--- NOTE | 2024-07-21 09:13 | WPDGICN ---
Assessment and Plan Assessment and plan (1) Crohn's colitis: Code(s): K50.10 - Crohn's disease of large intestine without complications Status: Acute Assessment and Plan: The patient has mild Crohn's disease, involving the ileum. He responded to Iv solumedrol. He can be discharged today. PLease note the following discharge instructions : Prednisone 30 mg qD until he sees us in GI clinic in 4 weeks approximately. He will have a new job and a new insurance company by then and will work on biologics approval. He received 500 mg of Venofer while hospitalized. He needs another 500 mg to be arraged as an outpatient in infusion center. There are no other pending issues and he can be safely discharged today. (2) Anemia: Code(s): D64.9 - Anemia, unspecified Status: Acute GI Consult Note Consult date/time: 07/21/24 09:13 HPI: Jamel Valero is a 23 year old male with Crohn's disease involving the distal ileum. Colonoscopy today showed mild ileitis, no deep ulcerations, stenosis or fistulae. He feels very well. [facility] Past Medical History Medical History Acute gastritis Chronic headaches Crohn's colitis Diarrhea Impingement syndrome, shoulder, left Labral tear of hip joint Labral tear of long head of left biceps tendon Left shoulder pain Nausea & vomiting Scapular dysfunction Scoliosis of thoracic spine Seasonal allergies Stomach pain Subacromial bursitis of left shoulder joint Vision abnormalities Social History Social History Smoking status: Never smoker Alcohol intake: never Substance use: unknown Do You Feel Safe in your Home?: Yes Lack of Transportation: No Lack of Food: Never True Current Housing: I Have Housing Concerned About Future Housing: No Difficulty Paying Gas/Electric Bills: No Difficulty Paying for Meds: No Currently Unemployed: No Education: High School Diploma/GED Difficulty w/ Childcare or Family Care: No Occupation/Education: occupation 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 Gender identity (if verbalized by the patient): Male Spiritual care concerns: No Meds Home Medications and Allergies Home Medications Medication Instructions Recorded Confirmed Type ibuprofen 100 mg/5 mL oral 600 mg (30 mL) PO TID PRN fever 7 05/19/24 07/20/24 Rx suspension (Children's Ibuprofen) days #473 mL metronidazole 500 mg tablet 500 mg PO Q8H 7 days #15 tabs 07/26/24 Rx prednisone 10 mg tablet 10 mg PO DAILY #18 tabs 07/26/24 Rx vancomycin 1,000 mg intravenous 125 mg PO Q6HR #20 ea 07/26/24 Rx injection Allergies Allergy/AdvReac Type Severity Reaction Status Date / Time No Known Allergies Allergy Verified 07/20/24 15:53 Vital Signs Vital Signs - 24 hr 07/20/24 13:37 07/20/24 17:46 07/20/24 21:17 Temperature 99.0 F 98.4 F Pulse Rate 122 H 110 H 108 H Respiratory Rate 16 20 14 Blood Pressure 120/79 136/73 145/76 H Pulse Oximetry 100 99 98 Oxygen Delivery 07/20/24 20:00 07/21/24 05:18 Temperature 97.5 F L Pulse Rate 102 H Respiratory Rate 16 Blood Pressure 121/78 Pulse Oximetry 99 Oxygen Delivery Room Air Exam Narrative: General: In no acute distress, well nourished Cardiac: Normal S1 and S2. No murmur, gallops or friction rubs, peripheral pulses intact. Respiratory: Lungs clear to auscultation, no adventitious lung sounds, currently on room air Gastrointestinal: soft, non-distended, non-tender, normoactive bowel sounds. : voiding without difficulty. Neuro: Alert and oriented x4 Results Labs 07/26/24 06:49 07/26/24 06:49 Labs: Short CBC 07/20/24 Range/Units 14:00 WBC 6.6 (4.5-10.0) K/mm3 Hgb 13.2 L (14.0-18.0) g/dL Hct 41.5 L (42.0-52.0) % Plt Count 344 (150-375) k/mm3 BMP 07/20/24 14:00 Sodium 134 L Potassium 3.6 Chloride 97 L Carbon Dioxide 26 BUN 8 L Creatinine 0.90 Glucose 102 Calcium 8.9 Liver Function 07/20/24 Range/Units 14:00 Total Bilirubin 0.7 (0.2-1.3) mg/dL AST 29 (17-59) U/L ALT 29 (6-50) U/L Alkaline Phosphatase 90 (38-126) U/L Albumin 4.5 (3.5-5.1) g/dL Urine 07/20/24 Range/Units 15:54 Urine Color Yellow (Yellow) Urine Appearance Clear (Clear) Urine pH 6.0 (5.0-9.0) Ur Specific [place] 1.020 (1.001-1.035) Urine Protein 1+ H (Negative) mg/dL Urine Glucose (UA) Negative (Negative) mg/dL
[2024-07-21 09:22] LABS: Hepatitis B Surface Antigen Negative (Negative)
[2024-07-21 11:09] LABS: Toxigenic C. Diff POSITIVE (NEGATIVE)
--- NOTE | 2024-07-21 11:15 | P.HP_ITS ---
H&P: HPI History of Present Illness Date/Time: 07/21/24 11:16 Chief Complaint: abdominal pain Narrative: This is a 23-year-old with no significant past medical history who presents with abdominal pain, fever, vomiting, and diarrhea. Patient states that he has had abdominal pain off and on for quite some time. He had been evaluated in the ER back in April and diagnosed with enteritis. He was sent home with antibiotics which cleared up his symptoms. He started having symptoms again about 5 days ago with fever, up to 103, severe abdominal pain, nausea, vomiting, and diarrhea. He also noted to have an EGD as an outpatient which did not show any significant findings. He does report acid reflux, abdominal pain, diarrhea currently. He denies any nausea, vomiting, chest pain, shortness of breath. He denies any family history of Crohn's disease or inflammatory bowel disorders. He presented here for further evaluation. Workup in the hospital included a CT of the abdomen and pelvis which shows ileal enteritis with adjacent phlegmon/early abscess and possible fistulous connection to the adjacent sigmoid, intrahepatic gas concerning for portal venous gas which can be seen with ischemic bowel, inflammatory bowel disease, or pelvic abscess. Pelvis MRI shows terminal ileitis with fistula to the wall of the rectosigmoid concerning with Crohn's disease. Abdomen MRI showed partially visualized terminal ileitis concerning with Crohn's disease. Initial labs showed a normal white blood cell count of 6.6, hemoglobin 13.2, ESR 81, sodium 134, chloride 97, lactic acid was 0.9, C reactive protein 13.8, lipase was normal at 36. UA was obtained which showed 1+ urine protein, 3+ urine ketones otherwise negative. Stool culture was obtained and pending. He was also check for C diff and was positive. Hepatitis-B antigen was negative. TB was also ordered and pending. EKG showed sinus tach with a rate of 118, incomplete right bundle branch. He was given 1 L of LR, Zofran, Toradol while in the ED. he was started on Cipro and Flagyl while in the ED and then started on vancomycin when he was found to be C diff positive. GI was consulted. Review of Systems Review of Systems: All systems reviewed & are unremarkable except as noted in HPI and below Constitutional: Constitutional: Reports as per HPI and Reports no additional constitutional complaints Eyes: Eyes: Reports as per HPI and Reports no additional eye complaints ENT: Reports system reviewed and no additional complaints, except as documented and Reports as per HPI Cardiovascular: Cardiovascular: Reports as per HPI and Reports no additional cardiovascular complaints Respiratory: Respiratory: Reports as per HPI and Reports no additional respiratory complaints Gastrointestinal: Gastrointestinal: Reports as per HPI and Reports no additional gastrointestinal complaints Genitourinary: Genitourinary: Reports no additional male genitourinary complaints and Reports as per HPI Musculoskeletal: Musculoskeletal: Reports no additional musculoskeletal complaints and Reports as per HPI Integumentary/Breasts: Skin/Breast: Reports system reviewed and no additional complaints, except as docu and Reports as per HPI Neurologic: Reports system reviewed and no additional complaints, except as documented and Reports as per HPI Psychiatric: Psychiatric: Reports no additional psychiatric complaints and Reports as per HPI [facility] Past Medical History Medical History Acute gastritis Chronic headaches Crohn's colitis Diarrhea Impingement syndrome, shoulder, left Labral tear of hip joint Labral tear of long head of left biceps tendon Left shoulder pain Nausea & vomiting Scapular dysfunction Scoliosis of thoracic spine Seasonal allergies Stomach pain Subacromial bursitis of left shoulder joint Vision abnormalities Social History Social History Smoking status: Never smoker Alcohol intake: never Substance use: unknown Do You Feel Safe in your Home?: Yes Lack of Transportation: No Lack of Food: Never True Current Housing: I Have Housing Concerned About Future Housing: No Difficulty Paying Gas/Electric Bills: No Difficulty Paying for Meds: No Currently Unemployed: No Education: High School Diploma/GED Difficulty w/ Childcare or Family Care: No Occupation/Education: occupation 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 Gender identity (if verbalized by the patient): Male Spiritual care concerns: No Meds Home Medications and Allergies Home Medications Medication Instructions Recorded Confirmed Type ibuprofen 100 mg/5 mL oral 600 mg (30 mL) PO TID PRN fever 7 05/19/24 07/20/24 Rx suspension (Children's Ibuprofen) days #473 mL Allergies Allergy/AdvReac Type Severity Reaction Status Date / Time No Known Allergies Allergy Verified 07/20/24 15:53 Vital Signs Vital Signs - 24 hr 07/20/24 13:37 07/20/24 17:46 07/20/24 21:17 Temperature 99.0 F 98.4 F Pulse Rate 122 H 110 H 108 H Respiratory Rate 16 20 14 Blood Pressure 120/79 136/73 145/76 H Pulse Oximetry 100 99 98 Oxygen Delivery 07/20/24 20:00 07/21/24 05:18 Temperature 97.5 F L Pulse Rate 102 H Respiratory Rate 16 Blood Pressure 121/78 Pulse Oximetry 99 Oxygen Delivery Room Air Exam Narrative: General: In no acute distress, well nourished Head: atraumatic, no encephalopathy Eyes: EOMI, PERRLA, sclera clear ENT: moist mucous membranes, nasal passages clear Neck: supple, no JVD, no adenopathy, trachea midline Cardiac: Normal S1 and S2. No murmur, gallops or friction rubs, peripheral pulses intact. Respiratory: Lungs clear to auscultation, no adventitious lung sounds Gastrointestinal: soft, non-distended, non-tender, normoactive bowel sounds. : voiding without difficulty. Extremities: moves all extremities well, no edema, good ROM, strength 5/5 Skin: clean, dry, intact. No wounds or lesions. Neuro: Alert and oriented x4, cranial nerves intact, no neuro deficits. Psych: normal mood, normal affect, interactive H&P: Results Labs Labs: Short CBC 07/20/24 Range/Units 14:00 WBC 6.6 (4.5-10.0) K/mm3 Hgb 13.2 L (14.0-18.0) g/dL Hct 41.5 L (42.0-52.0) % Plt Count 344 (150-375) k/mm3 BMP 07/20/24 14:00 Sodium 134 L Potassium 3.6 Chloride 97 L Carbon Dioxide 26 BUN 8 L Creatinine 0.90 Glucose 102 Calcium 8.9 Liver Function 07/20/24 Range/Units 14:00 Total Bilirubin 0.7 (0.2-1.3) mg/dL AST 29 (17-59) U/L ALT 29 (6-50) U/L Alkaline Phosphatase 90 (38-126) U/L Albumin 4.5 (3.5-5.1) g/dL Urine 07/20/24 Range/Units 15:54 Urine Color Yellow (Yellow) Urine Appearance Clear (Clear) Urine pH 6.0 (5.0-9.0) Ur Specific [place] 1.020 (1.001-1.035) Urine Protein 1+ H (Negative) mg/dL Urine Glucose (UA) Negative (Negative) mg/dL Imaging CT of the abdomen and pelvis: Radiologist's impression: EXAMINATION: CT abdomen pelvis w con DATE: 07/20/2024 16:21 INDICATION: RLQ pain TECHNIQUE: Computed tomography (CT) of the abdomen and pelvis was performed with 100 mL Omnipaque-350 intravenous contrast. Automated exposure control and iterative reconstruction technique were employed. The dose-length product was 415.66 mGy-cm. COMPARISON: None. FINDINGS: Lower thorax: Mild bilateral gynecomastia. Liver: Small focus of branching intrahepatic gas in the peripheral and anti- dependent portion of the left lobe. Biliary/Gallbladder: Gallbladder is normal. No bile duct dilation. Pancreas: No mass or duct dilation. Spleen: Normal. Adrenals:No mass. Kidneys: No suspicious mass, obstructing stone, or hydronephrosis. GI tract: Distal ileal wall edema. No small or large bowel dilation. Normal appendix. Mesentery/Peritoneum: No free air. Irregular soft tissue density in the mesentery of the deep pelvis between a loop of edematous ileum and the adjacent sigmoid (axial image [id number]), with mesenteric edema, hyperemia, and minimal mesenteric fluid. Retroperitoneum: No mass. Pelvis: Pelvic organs are within normal limits. Soft Tissues: Soft tissues and body wall unremarkable. Bones: No acute osseous finding. IMPRESSION: Ileal enteritis with adjacent phlegmon/early abscess and possible fistulous connection to the adjacent sigmoid. Intrahepatic gas, concerning for portal venous gas, which can be seen with ischemic bowel, inflammatory bowel disease, and pelvic abscess. Correlate for clinical findings of sepsis. Results reported telephonically to Dr. Ferreira by Dr. Buitrago at 4:49 PM on 07/20/2024. Reviewed, dictated and finalized at location [facility] Pelvis MRI: Radiologist's impression: EXAMINATION: MR pelvis wo/w con DATE: 07/21/2024 13:13 INDICATION: Crohn disease. TECHNIQUE: Magnetic resonance imaging (MRI) of the pelvis was performed without and with 17 mL MultiHance intravenous contrast. COMPARISON: CT abdomen and pelvis 07/20/2024 FINDINGS: There are no dilated loops of bowel. There is wall thickening of the distal 30 cm of terminal ileum with surrounding fat stranding. The fat stranding abuts the rectosigmoid, which demonstrates wall thickening. There is no drainable abscess. There are no pathologically enlarged lymph nodes. There is no free i ntraperitoneal fluid. IMPRESSION: 1. Terminal ileitis with fistula to the wall of the rectosigmoid, consistent with Crohn disease. Reviewed, dictated and finalized at location [facility] Abdomen MRI: Radiologist's impression: EXAMINATION: MR abdomen wo/w con DATE: 07/21/2024 13:12 INDICATION: Crohn disease. Right lower quadrant abdominal pain. TECHNIQUE: Magnetic resonance imaging (MRI) of the abdomen was performed without and with 17 mL MultiHance intravenous contrast. COMPARISON: CT abdomen and pelvis 07/20/2024 FINDINGS: The liver, gallbladder, pancreas, adrenal glands, and kidneys are normal. There is an 8 mm cyst in the spleen. There are no dilated loops of bowel. Partially visualized is wall thickening of the terminal ileum. There are no pathologically enlarged lymph nodes. There is no free intraperitoneal fluid. IMPRESSION: 1. Partially visualized terminal ileitis, consistent with Crohn disease. Reviewed, dictated and finalized at location [facility] Assessment and Plan Assessment and plan (1) Sepsis: Code(s): A41.9 - Sepsis, unspecified organism Status: Acute Assessment and Plan: * Initially meeting sepsis criteria with a temp of 102.7?, pulse 129, respiratory rate ranging 20-23, known source of infection C diff colitis * Stool cultures obtained * C diff positive * White blood cell count normal * He was given 1 L of LR in the ED * Will obtain blood cultures * Continue Cipro, Flagyl, vancomycin (2) Bowel disease, inflammatory: Code(s): K52.9 - Noninfective gastroenteritis and colitis, unspecified Status: Acute Assessment and Plan: * Abdomen/pelvis CT shown ileal enteritis with adjacent folic him on/early abscess and possible fistulous connection to the adjacent sigmoid, intrahepatic gas concerning for portal venous gas which can be seen with ischemic bowel, inflammatory bowel disease, pelvic abscess. * Pelvic MRI shows terminal ileitis with fistula to the wall of the rectosigmoid consistent with Crohn's disease * Abdomen MRI shows partially visualized terminal ileitis consistent with Crohn's disease * GI consulted and following * Continue Cipro and Flagyl * C diff was positive * Patient started on vancomycin 125 mg q.6 hour oral * Will likely need steroids, defer to GI team * ESR 81, CRP 13.8 * White blood cell count 6.6 (3) Crohn's colitis: Code(s): K50.10 - Crohn's disease of large intestine without complications Status: Acute Assessment and Plan: * New diagnosis * See above for detail (4) Regional enteritis of ileum: Code(s): K50.00 - Crohn's disease of small intestine without complications Status: Acute Assessment and Plan: See above (5) Anemia: Code(s): D64.9 - Anemia, unspecified Status: Acute Assessment and Plan: * Hemoglobin 12.1 * Will check vitamin B12, folic acid, ferritin, iron panel, TSH Quality VTE Prophylaxis VTE prophylaxis: mechanical ordered Hospitalist MIPS Advance Care Plan I have confirmed that the patient's Advanced Care Plan is present, code status is documented, or surrogate decision maker is listed in patient medical record.: Yes Medication Reconciliation I have utilized all available resources to obtain, update and review the patients current medications (includes all prescriptions, OTC, herbals, cannabis, and nutritional supplements).: Yes
[2024-07-21 11:51] LABS: Basophils Percent Auto 0.2 % (0.2-1.2); Hematocrit 38.4 % (42.0-52.0); Hemoglobin 12.1 g/dL (14.0-18.0); Immature Granulocyte Absolute 0.03 K/mm3 (0.00-0.031); Immature Granulocyte Percent A 0.5 % (0-0.5); Lymphocytes Absolute Auto 0.19 K/mm3 (0.9-3.2); Lymphocytes Percent Auto 2.9 % (18.3-44.2); Mean Corpuscular HGB Conc 31.5 g/dl (32-36); Mean Corpuscular Hemoglobin 26.3 pg (26-34); Mean Corpuscular Volume 83.5 fl (80-100); Mean Platelet Volume 9.6 fl (7.4-10.4); Monocytes Absolute Auto 0.5 K/mm3 (0.1-0.6); Monocytes Percent Auto 7.9 % (2.6-8.5); Neutrophils Absolute Auto 5.8 K/mm3 (1.3-6.7); Neutrophils Percent Auto 88.5 % (45.5-73.1); Platelet Count Result 283 k/mm3 (150-375); White Blood Count 6.6 K/mm3 (4.5-10.0)
[2024-07-21] MEDS: VANCOMYCIN HCL 125 MG ORAL CAPSULE PO (11:52)
[2024-07-21 12:06] LABS: Alanine Aminotransferase 36 U/L (6-50); Albumin Level 3.9 g/dL (3.5-5.1); Alkaline Phosphatase 90 U/L (38-126); Anion Gap 9 mmol/L (4-12); Aspartate Amino Transferase 39 U/L (17-59); Bilirubin,Total 0.7 mg/dL (0.2-1.3); Blood Urea Nitrogen 9 mg/dL (9-20); Calcium 8.4 mg/dL (8.4-10.2); Carbon Dioxide 26 mmol/L (22-30); Chloride 98 mmol/L (98-107); Estimated CRCL calculation 164 ml/min; Estimated Glomerular Filt Rate > 60; Glucose 88 mg/dL (65-110); Potassium 3.8 mmol/L (3.4-5.0); Sodium 133 mmol/L (137-145)
--- NOTE | 2024-07-21 13:10 | P.CONGI_ITS ---
Assessment and Plan Assessment and plan (1) Regional enteritis of ileum: Code(s): K50.00 - Crohn's disease of small intestine without complications Status: Acute Assessment and Plan: the patient has recurrent fever, abdominal pain and evidence of fistulous tracts in his small and large bowel. A pelvic MRI was ordered for more pain precision this morning. His CRP is markedly elevated, and calprotectin is pending. Toxin assay for C difficile is positive today, and the rest of the panel (TPMT activity , quantiferon and HBsAg) prior to potential biologic therapy is still pending. Plan Possible Crohn's disease. Will wait for MRI results - continue Cipro + Metronidazole IV - Will start Vancomycin 125 mg orally q 6 hours - Will consider intravenous solumedrol in the next 24-48 hours GI Consult Note Consult date/time: 07/21/24 13:10 HPI: Jamel Valero is a 23 year old male who was in his usual state of health until April this year, when he had an severe diarrhea, abdominal cramping and fever episodes. He was evaluated in the emergency room and a CT scan revealed nonspecific enteritis. He received antibiotics for 5 days and was did well, being completely asymptomatic until 5 days ago, when he started to have diarrhea, severe abdominal cramping and fever up to 103 F. he was admitted yesterday, and a CT scan showed Ileal enteritis with adjacent phlegmon/early abscess and possible fistulous connection to the adjacent sigmoid. There was some gas in the periphery of the liver compatible with portal venous gas. He is now admitted for medical treatment and evaluation. Review of Systems Review of Systems: All systems reviewed & are unremarkable except as noted in HPI and below PMFSH Past Medical History Medical History Acute gastritis Chronic headaches Diarrhea Impingement syndrome, shoulder, left Labral tear of hip joint Labral tear of long head of left biceps tendon Left shoulder pain Nausea & vomiting Scapular dysfunction Scoliosis of thoracic spine Seasonal allergies Stomach pain Subacromial bursitis of left shoulder joint Vision abnormalities Social History Social History Smoking status: Never smoker Alcohol intake: never Substance use: unknown Do You Feel Safe in your Home?: Yes Lack of Transportation: No Lack of Food: Never True Current Housing: I Have Housing Concerned About Future Housing: No Difficulty Paying Gas/Electric Bills: No Difficulty Paying for Meds: No Currently Unemployed: No Education: High School Diploma/GED Difficulty w/ Childcare or Family Care: No Occupation/Education: occupation 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 Gender identity (if verbalized by the patient): Male Spiritual care concerns: No Meds Home Medications and Allergies Home Medications Medication Instructions Recorded Confirmed Type ibuprofen 100 mg/5 mL oral 600 mg (30 mL) PO TID PRN fever 7 05/19/24 07/20/24 Rx suspension (Children's Ibuprofen) days #473 mL Allergies Allergy/AdvReac Type Severity Reaction Status Date / Time No Known Allergies Allergy Verified 07/20/24 15:53 Vital Signs Vital Signs - 24 hr 07/20/24 13:37 07/20/24 17:46 07/20/24 21:17 Temperature 99.0 F 98.4 F Pulse Rate 122 H 110 H 108 H Respiratory Rate 16 20 14 Blood Pressure 120/79 136/73 145/76 H Pulse Oximetry 100 99 98 Oxygen Delivery 07/20/24 20:00 07/21/24 05:18 Temperature 97.5 F L Pulse Rate 102 H Respiratory Rate 16 Blood Pressure 121/78 Pulse Oximetry 99 Oxygen Delivery Room Air Exam GI: Other: Tenderness to deep palpation on right lower quadrant, no guarding, no rebound. Results Labs 07/21/24 11:42 07/21/24 11:42 Labs: Short CBC 07/20/24 07/21/24 Range/Units 14:00 11:42 WBC 6.6 6.6 (4.5-10.0) K/mm3 Hgb 13.2 L 12.1 L (14.0-18.0) g/dL Hct 41.5 L 38.4 L (42.0-52.0) % Plt Count 344 283 (150-375) k/mm3 BMP 07/20/24 07/21/24 14:00 11:42 Sodium 134 L 133 L Potassium 3.6 3.8 Chloride 97 L 98 Carbon Dioxide 26 26 BUN 8 L 9 Creatinine 0.90 0.70 Glucose 102 88 Calcium 8.9 8.4 Liver Function 07/20/24 07/21/24 Range/Units 14:00 11:42 Total Bilirubin 0.7 0.7 (0.2-1.3) mg/dL AST 29 39 (17-59) U/L ALT 29 36 (6-50) U/L Alkaline Phosphatase 90 90 (38-126) U/L Albumin 4.5 3.9 (3.5-5.1) g/dL Urine 07/20/ Range/Units 15:54 Urine Color Yellow (Yellow) Urine Appearance Clear (Clear) Urine pH 6.0 (5.0-9.0) Ur Specific [place] 1.020 (1.001-1.035) Urine Protein 1+ H (Negative) mg/dL Urine Glucose (UA) Negative (Negative) mg/dL
[2024-07-21 16:00] VITALS: BP 125/76; PULSE 101; RESP 16; TEMP 36.6; O2SAT 98
[2024-07-21 16:55] LABS: Iron 17 ug/dL (49-181)
[2024-07-21 17:05] LABS: Percent Iron Saturation 6 % (20-50)
[2024-07-21 17:27] LABS: Thyroid Stimulating Hormone Reflex 0.101 uIU/mL (0.465-4.68)
[2024-07-21] MEDS: VANCOMYCIN ORAL 125 MG/2.5 ML SYRUP PO ×2 (17:43→23:06)
[2024-07-21 17:53] LABS: Folic Acid 7.7 ng/mL (2.76->20)
[2024-07-21 18:37] LABS: Total Triiodothyronine (T3) 0.99 NG/ML (0.97-1.69)
[2024-07-21 20:35] VITALS: BP 124/75; PULSE 96; RESP 16; TEMP 37; O2SAT 98
[2024-07-22 00:20] VITALS: BP 117/63; PULSE 102; RESP 20; TEMP 37.3; O2SAT 100
[2024-07-22 04:15] VITALS: BP 121/65; PULSE 87; RESP 16; TEMP 37.2; O2SAT 97
[2024-07-22] MEDS: metroNIDAZOLE 500 MG/ISO 100ML 500 MG/100 ML BAG 100 MG IVPB ×3 (04:30→22:11)
[2024-07-22] MEDS: CIPROFLOXACIN 400 MG/D5W 200ML 200 ML 200 MG IVPB (05:32)
[2024-07-22] MEDS: VANCOMYCIN ORAL 125 MG/2.5 ML SYRUP PO ×4 (05:37→23:11)
[2024-07-22 06:50] LABS: Basophils Percent Auto 0.2 % (0.2-1.2); Eosinophils Percent Auto 0.9 % (0-4.4); Hematocrit 38.1 % (42.0-52.0); Hemoglobin 11.8 g/dL (14.0-18.0); Immature Granulocyte Absolute 0.04 K/mm3 (0.00-0.031); Immature Granulocyte Percent A 0.9 % (0-0.5); Lymphocytes Absolute Auto 0.29 K/mm3 (0.9-3.2); Lymphocytes Percent Auto 6.4 % (18.3-44.2); Mean Corpuscular Volume 84.1 fl (80-100); Mean Platelet Volume 9.9 fl (7.4-10.4); Monocytes Absolute Auto 0.7 K/mm3 (0.1-0.6); Monocytes Percent Auto 14.7 % (2.6-8.5); Neutrophils Absolute Auto 3.5 K/mm3 (1.3-6.7); Neutrophils Percent Auto 76.9 % (45.5-73.1); Platelet Count Result 275 k/mm3 (150-375); Red Blood Count 4.53 M/mm3 (4.6-6.20); Red Cell Distribution Width 12.8 % (11.5-14.5); White Blood Count 4.5 K/mm3 (4.5-10.0)
[2024-07-22 06:59] LABS: Alanine Aminotransferase 40 U/L (6-50); Albumin Level 3.9 g/dL (3.5-5.1); Alkaline Phosphatase 78 U/L (38-126); Anion Gap 10 mmol/L (4-12); Aspartate Amino Transferase 44 U/L (17-59); Bilirubin,Total 0.6 mg/dL (0.2-1.3); Blood Urea Nitrogen 10 mg/dL (9-20); Calcium 8.5 mg/dL (8.4-10.2); Carbon Dioxide 29 mmol/L (22-30); Chloride 95 mmol/L (98-107); Estimated CRCL calculation 189 ml/min; Estimated Glomerular Filt Rate > 60; Glucose 112 mg/dL (65-110); Potassium 3.5 mmol/L (3.4-5.0); Sodium 134 mmol/L (137-145)
[2024-07-22 08:00] VITALS: BP 120/67; PULSE 81; RESP 18; TEMP 36.4; O2SAT 98
[2024-07-22] MEDS: PANTOPRAZOLE 40 MG TABLET PO (08:51)
--- NOTE | 2024-07-22 10:29 | P.PNGI_ITS ---
Progress Note: A&P Assessment and Plan (1) Crohn's colitis: Code(s): K50.10 - Crohn's disease of large intestine without complications Status: Acute Assessment and Plan: The patient's clinical and radiologic presentation is consistent with Crohn's ileitis. Yesterday's pelvic MRI demonstrated clear involvement of his terminal ileum with fat stranding and near compromise of the sigmoid colon. He was also f ound to have iron deficiency and concomitant B12 deficiency. Additionally, he has a superimposed C. difficile infection. I had a lengthy conversation with the patient, explaining the nature of this ch ronic disease and the need for immediate steroid therapy. I also prepared him for potential biologic therapy in the near future, pending insurance approval. My initial treatment plan involves an anti-TNF agent (adalimumab, for ease of administration) in combination with 6-MP. A colonoscopy will be performed next Friday to stage his disease. Plan - Continue Vancomycin 125 mg q 6h PO - Discontinue antibiotics and Pantoprazole - Solumedrol 40 mg q 24 hours IV - Consent for colonoscopy on Friday, split dose prep with Miralax starting Friday pm - Venofer 500 mg IV and repeat dose in 2 weeks - Vitamin B12 1000 U IM now - Await results of baseline Calprotectin, TPMT activity, Quantiferon and HBsAg Subjective Date/time seen: 07/22/24 10:29 Interval history: Patient feels better, did not have further diarrhea, abdominal pain or fever. His stool test is positive for C difficile, calprotectin level still pending. Exam GI: Other: Tenderness to deep palpation on right lower quadrant, no guarding, no rebound. Objective Data Vital Signs Vital Signs: Vital Signs - 24 hr 07/21/24 16:00 07/21/24 20:35 07/22/24 00:20 Temperature 97.9 F 98.6 F 99.1 F Pulse Rate 101 H 96 102 H Respiratory Rate 16 16 20 Blood Pressure 125/76 124/75 117/63 Pulse Oximetry 98 98 100 Oxygen Delivery 07/22/24 04:15 07/22/24 08:00 07/22/24 08:00 Temperature 98.9 F 97.6 F Pulse Rate 87 81 Respiratory Rate 16 18 Blood Pressure 121/65 120/67 Pulse Oximetry 97 98 Oxygen Delivery Room Air Intake/Output Intake/Output: Intake & Output 07/19/24 07/20/24 07/21/24 07/22/24 23:59 23:59 23:59 23:59 Intake Total 1300 1540 1128 Balance 1300 1540 1128 Meds/Results Medications: Active Medications Generic Name Dose Route Start Last Admin Trade Name Freq PRN Reason Stop Dose Admin Metronidazole 500 mg in 100 mls @ 100 mls/hr 07/20/24 19:00 07/22/24 04:30 Flagyl 500 Mg/Iso Soln 100 Ml IVPB 100 mls/hr 0500,1300,2100 YOON Administration Iron Sucrose 400 mg/ Iron 275 mls @ 78.571 mls/hr 07/22/24 11:00 Sucrose 100 mg/ Sodium IVPB 07/22/24 14:29 Chloride ONCE ONE Methylprednisolone Sodium Succinate 40 mg 07/22/24 10:20 Methylprednisolone Sod Succ 40 Mg Vial IV PUSH DAILY YOON Polyethylene Glycol 238 gm 07/25/24 21:00 Polyethylene Glycol 3350 238 Gm Bottle PO 07/25/24 21:01 ONCE ONE Polyethylene Glycol 238 gm 07/26/24 04:00 Polyethylene Glycol 3350 238 Gm Bottle PO 07/26/24 04:01 ONCE ONE Trimethobenzamide HCl 200 mg 07/20/24 21:00 Trimethobenzamide Hcl 200 Mg/2 Ml Vial IM Q6H PRN Nausea And Vomiting Vancomycin HCl 125 mg 07/21/24 18:00 07/22/24 05:37 Vancomycin Oral 125 Mg/2.5 Ml Syrup PO 125 mg Q6HR YOON Administration Radiology Results: ITS Impressions Abdomen/Pelvis CT 07/20/24 16:23 IMPRESSION: Ileal enteritis with adjacent phlegmon/early abscess and possible fistulous connection to the adjacent sigmoid. Intrahepatic gas, concerning for portal venous gas, which can be seen with ischemic bowel, inflammatory bowel disease, and pelvic abscess. Correlate for clinical findings of sepsis. Results reported telephonically to Dr. Ferreira by Dr. Buitrago at 4:49 PM on 07/20/2024. Pelvis MRI 07/21/24 14:17 IMPRESSION: 1. Terminal ileitis with fistula to the wall of the rectosigmoid, consistent with Crohn disease. Abdomen MRI 07/21/24 14:23 IMPRESSION: 1. Partially visualized terminal ileitis, consistent with Crohn disease. Labs Labs: Laboratory Results - last 24 hr 07/21/24 07/21/24 07/21/24 09:40 11:42 16:05 WBC 6.6 RBC 4.60 Hgb 12.1 L Hct 38.4 L MCV 83.5 MCH 26.3 MCHC 31.5 L RDW 13.0 Plt Count 283 MPV 9.6 Immature Gran % (Auto) 0.5 Neut % (Auto) 88.5 H Lymph % (Auto) 2.9 L Marshall % (Auto) 7.9 Eos % (Auto) 0.0 Baso % (Auto) 0.2 Lymph # (Auto) 0.19 L Marshall # (Auto) 0.5 Eos # (Auto) 0.0 Baso # (Auto) 0.0 Abs Immat Gran (auto) 0.03 Absolute Neuts (auto) 5.8 Absolute Nucleated RBC 0.000 Nucleated RBC % 0.0 Sodium 133 L Potassium 3.8 Chloride 98 Carbon Dioxide 26 Anion Gap 9 BUN 9 Creatinine 0.70 Estim Creat Clear Calc 164 Estimated GFR > 60 Glucose 88 Calcium 8.4 Iron 17 L TIBC 297 % Saturation 6 L Ferritin 195.00 Total Bilirubin 0.7 AST 39 ALT 36 Alkaline Phosphatase 90 Total Protein 7.0 Albumin 3.9 Vitamin B12 213.0 L Folate 7.7 TSH (Reflex) 0.101 L Free T4 1.40 Total T3 0.99 C. difficile (PCR) Positive A* 07/22/24 07/22/24 06:41 06:42 WBC 4.5 RBC 4.53 L Hgb 11.8 L Hct 38.1 L MCV 84.1 MCH 26.0 MCHC 31.0 L RDW 12.8 Plt Count 275 MPV 9.9 Immature Gran % (Auto) 0.9 H Neut % (Auto) 76.9 H Lymph % (Auto) 6.4 L Marshall % (Auto) 14.7 H Eos % (Auto) 0.9 Baso % (Auto) 0.2 Lymph # (Auto) 0.29 L Marshall # (Auto) 0.7 H Eos # (Auto) 0.0 Baso # (Auto) 0.0 Abs Immat Gran (auto) 0.04 H Absolute Neuts (auto) 3.5 Absolute Nucleated RBC 0.000 Nucleated RBC % 0.0 Sodium 134 L Potassium 3.5 Chloride 95 L Carbon Dioxide 29 Anion Gap 10 BUN 10 Creatinine 0.60 L Estim Creat Clear Calc 189 Estimated GFR > 60 Glucose 112 H Calcium 8.5 Iron TIBC % Saturation Ferritin Total Bilirubin 0.6 AST 44 ALT 40 Alkaline Phosphatase 78 Total Protein 7.0 Albumin 3.9 Vitamin B12 Folate TSH (Reflex) Free T4 Total T3 C. difficile (PCR)
--- NOTE | 2024-07-22 11:52 | P.PNIM_ITS ---
Progress Note: A&P Assessment and Plan (1) Sepsis: Code(s): A41.9 - Sepsis, unspecified organism Status: Acute Assessment and Plan: * Initially meeting sepsis criteria with a temp of 102.7?, pulse 129, respirato ry rate ranging 20-23, known source of infection C diff colitis * Stool cultures obtained * C diff positive * White blood cell count normal * He was given 1 L of LR in the ED * Blood cultures * Continue Vancomycin and Flagyl * Cipro discontinued (2) Bowel disease, inflammatory: Code(s): K52.9 - Noninfective gastroenteritis and colitis, unspecified Status: Acute Assessment and Plan: * Abdomen/pelvis CT shown ileal enteritis with adjacent folic him on/early abscess and possible fistulous connection to the adjacent sigmoid, intrahepatic gas concerning for portal venous gas which can be seen with ischemic bowel, inflammatory bowel disease, pelvic abscess. * Pelvic MRI shows terminal ileitis with fistula to the wall of the rectosigmoid consistent with Crohn's disease * Abdomen MRI shows partially visualized terminal ileitis consistent with Crohn's disease * GI consulted and following * Continue Vancomycin and Flagyl * Discontinue Cipro * Steroids started per GI * C diff was positive * Initial ESR 81, CRP 13.8 * White blood cell count 4.5 today * Plan for Colonoscopy and biopsy on Friday (3) Crohn's colitis: Code(s): K50.10 - Crohn's disease of large intestine without complications Status: Acute Assessment and Plan: * New diagnosis * See above for detail (4) Regional enteritis of ileum: Code(s): K50.00 - Crohn's disease of small intestine without complications Status: Acute Assessment and Plan: See above (5) Anemia: Code(s): D64.9 - Anemia, unspecified Status: Acute Assessment and Plan: * Hemoglobin 11.8 * Will check vitamin B12, folic acid, ferritin, iron panel, TSH * Iron 17, Ferritin 1955, Vitamin B 12 216, TSH 0.101, free t4 1.40. total T3 0.99 * Patient was given iron infusion * Vitamin B12 1000 mcg given today Time Spent With Patient Time with patient: 15 - 25 minutes Subjective Date/time seen: 07/22/24 11:52 Interval history: Interval history: This is a 23-year-old with no significant past medical history who presents with abdominal pain, fever, vomiting, and diarrhea. Patient states that he has had abdominal pain off and on for quite some time. He had been evaluated in the ER back in April and diagnosed with enteritis. He was sent home with antibiotics which cleared up his symptoms. He started having symptoms again about 5 days ago with fever, up to 103, severe abdominal pain, nausea, vomiting, and diarrhea. He also noted to have an EGD as an outpatient which did not show any significant findings. He does report acid reflux, abdominal pain, diarrhea currently. He denies any nausea, vomiting, chest pain, shortness of breath. He denies any family history of Crohn's disease or inflammatory bowel disorders. He presented here for further evaluation. Workup in the hospital included a CT of the abdomen and pelvis which shows ileal enteritis with adjacent phlegmon/early abscess and possible fistulous connection to the adjacent sigmoid, intrahepatic gas concerning for portal venous gas which can be seen with ischemic bowel, inflammatory bowel disease, or pelvic abscess. Pelvis MRI shows terminal ileitis with fistula to the wall of the rectosigmoid concerning with Crohn's disease. Abdomen MRI showed partially visualized terminal ileitis concerning with Crohn's disease. Initial labs showed a normal white blood cell count of 6.6, hemoglobin 13.2, ESR 81, sodium 134, chloride 97, lactic acid was 0.9, C reactive protein 13.8, lipase was normal at 36. UA was obtained which showed 1+ urine protein, 3+ urine ketones otherwise negative. Stool culture was obtained and pending. He was also check for C diff and was positive. Hepatitis-B antigen was negative. TB was also ordered and pending. EKG showed sinus tach with a rate of 118, incomplete right bundle branch. He was given 1 L of LR, Zofran, Toradol while in the ED. he was started on Cipro and Flagyl while in the ED and then started on vancomycin when he was found to be C diff positive. GI was consulted. Subjective: Patient states that he is feeling better today. He denies any new complaints. Labs reviewed. Review of Systems Review of Systems: All systems reviewed & are unremarkable except as noted in HPI and below Constitutional: Constitutional: Reports as per HPI and Reports no additional constitutional complaints Eyes: Eyes: Reports as per HPI and Reports no additional eye complaints ENT: Reports system reviewed and no additional complaints, except as documented and Reports as per HPI Cardiovascular: Cardiovascular: Reports as per HPI and Reports no additional cardiovascular complaints Respiratory: Respiratory: Reports as per HPI and Reports no additional respiratory complaints Gastrointestinal: Gastrointestinal: Reports as per HPI and Reports no additional gastrointestinal complaints Genitourinary: Genitourinary: Reports no additional male genitourinary complaints and Reports as per HPI Musculoskeletal: Musculoskeletal: Reports no additional musculoskeletal complaints and Reports as per HPI Integumentary/Breasts: Skin/Breast: Reports system reviewed and no additional complaints, except as docu and Reports as per HPI Neurologic: Reports system reviewed and no additional complaints, except as documented and Reports as per HPI Psychiatric: Psychiatric: Reports no additional psychiatric complaints and Reports as per HPI Exam Narrative: General: In no acute distress, well nourished Cardiac: Normal S1 and S2. No murmur, gallops or friction rubs, peripheral pulses intact. Respiratory: Lungs clear to auscultation, no adventitious lung sounds, currently on room air Gastrointestinal: soft, non-distended, non-tender, normoactive bowel sounds. : voiding without difficulty. Neuro: Alert and oriented x4 Objective Data Vital Signs Vital Signs: Vital Signs - 24 hr 07/21/24 16:00 07/21/24 20:35 07/22/24 00:20 Temperature 97.9 F 98.6 F 99.1 F Pulse Rate 101 H 96 102 H Respiratory Rate 16 16 20 Blood Pressure 125/76 124/75 117/63 Pulse Oximetry 98 98 100 Oxygen Delivery 07/22/24 04:15 07/22/24 08:00 07/22/24 08:00 Temperature 98.9 F 97.6 F Pulse Rate 87 81 Respiratory Rate 16 18 Blood Pressure 121/65 120/67 Pulse Oximetry 97 98 Oxygen Delivery Room Air Intake/Output Intake/Output: Intake & Output 07/19/24 07/20/24 07/21/24 07/22/24 23:59 23:59 23:59 23:59 Intake Total 1300 1540 1128 Balance 1300 1540 1128 Meds/Results Medications: Active Medications Generic Name Dose Route Start Last Admin Trade Name Freq PRN Reason Stop Dose Admin Metronidazole 500 mg in 100 mls @ 100 mls/hr 07/20/24 19:00 07/22/24 04:30 Flagyl 500 Mg/Iso Soln 100 Ml IVPB 100 mls/hr 0500,1300,2100 YOON Administration Iron Sucrose 400 mg/ Iron 275 mls @ 78.571 mls/hr 07/22/24 11:00 Sucrose 100 mg/ Sodium IVPB 07/22/24 14:29 Chloride ONCE ONE Methylprednisolone Sodium Succinate 40 mg 07/22/24 10:20 Methylprednisolone Sod Succ 40 Mg Vial IV PUSH DAILY YOON Polyethylene Glycol 238 gm 07/25/24 21:00 Polyethylene Glycol 3350 238 Gm Bottle PO 07/25/24 21:01 ONCE ONE Polyethylene Glycol 238 gm 07/26/24 04:00 Polyethylene Glycol 3350 238 Gm Bottle PO 07/26/24 04:01 ONCE ONE Trimethobenzamide HCl 200 mg 07/20/24 21:00 Trimethobenzamide Hcl 200 Mg/2 Ml Vial IM Q6H PRN Nausea And Vomiting Vancomycin HCl 125 mg 07/21/24 18:00 07/22/24 05:37 Vancomycin Oral 125 Mg/2.5 Ml Syrup PO 125 mg Q6HR YOON Administration Radiology Results: ITS Impressions Abdomen/Pelvis CT 07/20/24 16:23 IMPRESSION: Ileal enteritis with adjacent phlegmon/early abscess and possible fistulous connection to the adjacent sigmoid. Intrahepatic gas, concerning for portal venous gas, which can be seen with ischemic bowel, inflammatory bowel disease, and pelvic abscess. Correlate for clinical findings of sepsis. Results reported telephonically to Dr. Ferreira by Dr. Buitrago at 4:49 PM on 07/20/2024. Pelvis MRI 07/21/24 14:17 IMPRESSION: 1. Terminal ileitis with fistula to the wall of the rectosigmoid, consistent with Crohn disease. Abdomen MRI 07/21/24 14:23 IMPRESSION: 1. Partially visualized terminal ileitis, consistent with Crohn disease. Labs Labs: Laboratory Results - last 24 hr 07/21/24 07/21/24 07/22/24 11:42 16:05 06:41 WBC 6.6 RBC 4.60 Hgb 12.1 L Hct 38.4 L MCV 83.5 MCH 26.3 MCHC 31.5 L RDW 13.0 Plt Count 283 MPV 9.6 Immature Gran % (Auto) 0.5 Neut % (Auto) 88.5 H Lymph % (Auto) 2.9 L [place] % (Auto) 7.9 Eos % (Auto) 0.0 Baso % (Auto) 0.2 Lymph # (Auto) 0.19 L [place] # (Auto) 0.5 Eos # (Auto) 0.0 Baso # (Auto) 0.0 Abs Immat Gran (auto) 0.03 Absolute Neuts (auto) 5.8 Absolute Nucleated RBC 0.000 Nucleated RBC % 0.0 Sodium 133 L 134 L Potassium 3.8 3.5 Chloride 98 95 L Carbon Dioxide 26 29 Anion Gap 9 10 BUN 9 10 Creatinine 0.70 0.60 L Estim Creat Clear Calc 164 189 Estimated GFR > 60 > 60 Glucose 88 112 H Calcium 8.4 8.5 Iron 17 L TIBC 297 % Saturation 6 L Ferritin 195.00 Total Bilirubin 0.7 0.6 AST 39 44 ALT 36 40 Alkaline Phosphatase 90 78 Total Protein 7.0 7.0 Albumin 3.9 3.9 Vitamin B12 213.0 L Folate 7.7 TSH (Reflex) 0.101 L Free T4 1.40 Total T3 0.99 07/22/24 06:42 WBC 4.5 RBC 4.53 L Hgb 11.8 L Hct 38.1 L MCV 84.1 MCH 26.0 MCHC 31.0 L RDW 12.8 Plt Count 275 MPV 9.9 Immature Gran % (Auto) 0.9 H Neut % (Auto) 76.9 H Lymph % (Auto) 6.4 L [place] % (Auto) 14.7 H Eos % (Auto) 0.9 Baso % (Auto) 0.2 Lymph # (Auto) 0.29 L [place] # (Auto) 0.7 H Eos # (Auto) 0.0 Baso # (Auto) 0.0 Abs Immat Gran (auto) 0.04 H Absolute Neuts (auto) 3.5 Absolute Nucleated RBC 0.000 Nucleated RBC % 0.0 Sodium Potassium Chloride Carbon Dioxide Anion Gap BUN Creatinine Estim Creat Clear Calc Estimated GFR Glucose Calcium Iron TIBC % Saturation Ferritin Total Bilirubin AST ALT Alkaline Phosphatase Total Protein Albumin Vitamin B12 Folate TSH (Reflex) Free T4 Total T3 Quality VTE Prophylaxis VTE prophylaxis: mechanical ordered
[2024-07-22] MEDS: methylPREDNISolone SOD SUCC 40 MG VIAL IV PUSH (11:55)
[2024-07-22] MEDS: IRON SUCROSE COMPLEX 400 MG, IRON SUCROSE COMPLEX 100 MG in SODIUM CHLORIDE 0.9% IV 250 ML 78.57 MG IVPB (11:56)
[2024-07-22 12:00] VITALS: BP 127/73; PULSE 98; RESP 18; TEMP 36.3; O2SAT 100
[2024-07-22] MEDS: CYANOCOBALAMIN INJ 1,000 MCG/ML VIAL 1000 MCG IM (12:02)
[2024-07-22 16:00] VITALS: BP 137/75; PULSE 95; RESP 18; TEMP 36.2; O2SAT 96
[2024-07-22 20:00] VITALS: BP 123/86; PULSE 85; RESP 14; TEMP 36.3; O2SAT 100
[2024-07-23] MEDS: metroNIDAZOLE 500 MG/ISO 100ML 500 MG/100 ML BAG 100 MG IVPB ×3 (05:19→21:19)
[2024-07-23 05:48] VITALS: BP 125/85; PULSE 67; RESP 14; TEMP 36.3; O2SAT 100
[2024-07-23] MEDS: VANCOMYCIN ORAL 125 MG/2.5 ML SYRUP PO ×4 (06:09→23:28)
[2024-07-23 06:27] LABS: Basophils Percent Auto 0.2 % (0.2-1.2); Eosinophils Percent Auto 0.2 % (0-4.4); Hematocrit 41.9 % (42.0-52.0); Hemoglobin 12.8 g/dL (14.0-18.0); Immature Granulocyte Absolute 0.08 K/mm3 (0.00-0.031); Immature Granulocyte Percent A 1.8 % (0-0.5); Lymphocytes Absolute Auto 0.36 K/mm3 (0.9-3.2); Mean Corpuscular HGB Conc 30.5 g/dl (32-36); Mean Corpuscular Hemoglobin 26.1 pg (26-34); Mean Corpuscular Volume 85.3 fl (80-100); Mean Platelet Volume 9.9 fl (7.4-10.4); Monocytes Absolute Auto 0.8 K/mm3 (0.1-0.6); Monocytes Percent Auto 18.2 % (2.6-8.5); Neutrophils Absolute Auto 3.2 K/mm3 (1.3-6.7); Neutrophils Percent Auto 71.6 % (45.5-73.1); Platelet Count Result 339 k/mm3 (150-375); Red Blood Count 4.91 M/mm3 (4.6-6.20); Red Cell Distribution Width 12.7 % (11.5-14.5); White Blood Count 4.5 K/mm3 (4.5-10.0)
[2024-07-23 06:42] LABS: Alanine Aminotransferase 40 U/L (6-50); Albumin Level 4.1 g/dL (3.5-5.1); Alkaline Phosphatase 100 U/L (38-126); Anion Gap 9 mmol/L (4-12); Aspartate Amino Transferase 36 U/L (17-59); Bilirubin,Total 0.5 mg/dL (0.2-1.3); Blood Urea Nitrogen 10 mg/dL (9-20); Calcium 9.1 mg/dL (8.4-10.2); Carbon Dioxide 31 mmol/L (22-30); Chloride 99 mmol/L (98-107); Estimated CRCL calculation 189 ml/min; Estimated Glomerular Filt Rate > 60; Glucose 103 mg/dL (65-110); Potassium 4.1 mmol/L (3.4-5.0); Sodium 139 mmol/L (137-145)
[2024-07-23] MEDS: methylPREDNISolone SOD SUCC 40 MG VIAL IV PUSH (09:11)
--- NOTE | 2024-07-23 09:38 | WPDGIPROGNO ---
Progress Note: A&P Assessment and Plan (1) Crohn's colitis: Code(s): K50.10 - Crohn's disease of large intestine without complications Status: Acute Assessment and Plan: The patient has ileal Crohn's disease, and superimposed C difficile infection. He is currently receiving intravenous Solu-Medrol, metronidazole and oral vancomycin. I will perform a colonoscopy Friday, orders already written. Subjective Date/time seen: 07/23/24 09:38 Interval history: Patient feeling much better, had no further diarrhea episodes, he stools are not formed but not diarrhea either. There is no fever or abdominal pain and patient has good appetite. Tolerating oral vancomycin very well. Exam Narrative: Unchanged from previous. Objective Data Vital Signs Vital Signs: Vital Signs - 24 hr 07/22/24 12:00 07/22/24 16:00 07/22/24 20:00 Temperature 97.4 F L 97.1 F L 97.3 F L Pulse Rate 98 95 85 Respiratory Rate 18 18 14 Blood Pressure 127/73 137/75 123/86 Pulse Oximetry 100 96 100 Oxygen Delivery 07/22/24 20:00 07/23/24 05:48 Temperature 97.3 F L Pulse Rate 67 Respiratory Rate 14 Blood Pressure 125/85 Pulse Oximetry 100 Oxygen Delivery Room Air Intake/Output Intake/Output: Intake & Output 07/20/24 07/21/24 07/22/24 07/23/24 23:59 23:59 23:59 23:59 Intake Total 1300 1540 3244 618 Balance 1300 1540 3244 618 Meds/Results Medications: Active Medications Generic Name Dose Route Start Last Admin Trade Name Espinozaq PRN Reason Stop Dose Admin Metronidazole 500 mg in 100 mls @ 100 mls/hr 07/20/24 19:00 07/23/24 06:19 Flagyl 500 Mg/Iso Soln 100 Ml IVPB Infused 0500,1300,2100 YOON Infusion Methylprednisolone Sodium Succinate 40 mg 07/22/24 10:20 07/23/24 09:11 Methylprednisolone Sod Succ 40 Mg Vial IV PUSH 40 mg DAILY YOON Administration Polyethylene Glycol 238 gm 07/25/24 21:00 Polyethylene Glycol 3350 238 Gm Bottle PO 07/25/24 21:01 ONCE ONE Polyethylene Glycol 238 gm 07/26/24 04:00 Polyethylene Glycol 3350 238 Gm Bottle PO 07/26/24 04:01 ONCE ONE Trimethobenzamide HCl 200 mg 07/20/24 21:00 Trimethobenzamide Hcl 200 Mg/2 Ml Vial IM Q6H PRN Nausea And Vomiting Vancomycin HCl 125 mg 07/21/24 18:00 07/23/24 06:09 Vancomycin Oral 125 Mg/2.5 Ml Syrup PO 125 mg Q6HR YOON Administration Radiology Results: ITS Impressions Abdomen/Pelvis CT 07/20/24 16:23 IMPRESSION: Ileal enteritis with adjacent phlegmon/early abscess and possible fistulous connection to the adjacent sigmoid. Intrahepatic gas, concerning for portal venous gas, which can be seen with ischemic bowel, inflammatory bowel disease, and pelvic abscess. Correlate for clinical findings of sepsis. Results reported telephonically to Dr. Ferreira by Dr. Buitrago at 4:49 PM on 07/20/2024. Pelvis MRI 07/21/24 14:17 IMPRESSION: 1. Terminal ileitis with fistula to the wall of the rectosigmoid, consistent with Crohn disease. Abdomen MRI 07/21/24 14:23 IMPRESSION: 1. Partially visualized terminal ileitis, consistent with Crohn disease. Labs Labs: Laboratory Results - last 24 hr 07/23/24 06:01 WBC 4.5 RBC 4.91 Hgb 12.8 L Hct 41.9 L MCV 85.3 MCH 26.1 MCHC 30.5 L RDW 12.7 Plt Count 339 MPV 9.9 Immature Gran % (Auto) 1.8 H Neut % (Auto) 71.6 Lymph % (Auto) 8.0 L [place] % (Auto) 18.2 H Eos % (Auto) 0.2 Baso % (Auto) 0.2 Lymph # (Auto) 0.36 L [place] # (Auto) 0.8 H Eos # (Auto) 0.0 Baso # (Auto) 0.0 Abs Immat Gran (auto) 0.08 H Absolute Neuts (auto) 3.2 Absolute Nucleated RBC 0.000 Nucleated RBC % 0.0 Sodium 139 Potassium 4.1 Chloride 99 Carbon Dioxide 31 H Anion Gap 9 BUN 10 Creatinine 0.60 L Estim Creat Clear Calc 189 Estimated GFR > 60 Glucose 103 Calcium 9.1 Total Bilirubin 0.5 AST 36 ALT 40 Alkaline Phosphatase 100 Total Protein 8.0 Albumin 4.1
--- NOTE | 2024-07-23 13:59 | P.PNIM_ITS ---
Progress Note: A&P Assessment and Plan (1) Sepsis: Code(s): A41.9 - Sepsis, unspecified organism Status: Acute Assessment and Plan: * Initially meeting sepsis criteria with a temp of 102.7?, pulse 129, respirato ry rate ranging 20-23, known source of infection C diff colitis * Stool cultures obtained * C diff positive * White blood cell count normal * He was given 1 L of LR in the ED * Blood cultures * Continue Vancomycin and Flagyl * Cipro discontinued (2) Bowel disease, inflammatory: Code(s): K52.9 - Noninfective gastroenteritis and colitis, unspecified Status: Acute Assessment and Plan: * Abdomen/pelvis CT shown ileal enteritis with adjacent folic him on/early abscess and possible fistulous connection to the adjacent sigmoid, intrahepatic gas concerning for portal venous gas which can be seen with ischemic bowel, inflammatory bowel disease, pelvic abscess. * Pelvic MRI shows terminal ileitis with fistula to the wall of the rectosigmoid consistent with Crohn's disease * Abdomen MRI shows partially visualized terminal ileitis consistent with Crohn's disease * GI consulted and following * Continue Vancomycin and Flagyl * Discontinue Cipro * Steroids started per GI * C diff was positive * Initial ESR 81, CRP 13.8 * White blood cell count 4.5 today * Plan for Colonoscopy and biopsy on Friday (3) Crohn's colitis: Code(s): K50.10 - Crohn's disease of large intestine without complications Status: Acute Assessment and Plan: * New diagnosis * See above for detail (4) Regional enteritis of ileum: Code(s): K50.00 - Crohn's disease of small intestine without complications Status: Acute Assessment and Plan: See above (5) Anemia: Code(s): D64.9 - Anemia, unspecified Status: Acute Assessment and Plan: * Hemoglobin 12.8 * Will check vitamin B12, folic acid, ferritin, iron panel, TSH * Iron 17, Ferritin 1955, Vitamin B 12 216, TSH 0.101, free t4 1.40. total T3 0.99 * Patient was given iron and vitamin B12 yesterday infusion Time Spent With Patient Time with patient: 25 - 35 minutes Subjective Date/time seen: 07/23/24 13:59 Interval history: Interval history: This is a 23-year-old with no significant past medical history who presents with abdominal pain, fever, vomiting, and diarrhea. Patient states that he has had abdominal pain off and on for quite some time. He had been evaluated in the ER back in April and diagnosed with enteritis. He was sent home with antibiotics which cleared up his symptoms. He started having symptoms again about 5 days ago with fever, up to 103, severe abdominal pain, nausea, vomiting, and diarrhea. He also noted to have an EGD as an outpatient which did not show any significant findings. He does report acid reflux, abdominal pain, diarrhea currently. He denies any nausea, vomiting, chest pain, shortness of breath. He denies any family history of Crohn's disease or inflammatory bowel disorders. He presented here for further evaluation. Workup in the hospital included a CT of the abdomen and pelvis which shows ileal enteritis with adjacent phlegmon/early abscess and possible fistulous connection to the adjacent sigmoid, intrahepatic gas concerning for portal venous gas which can be seen with ischemic bowel, inflammatory bowel disease, or pelvic abscess. Pelvis MRI shows terminal ileitis with fistula to the wall of the rectosigmoid concerning with Crohn's disease. Abdomen MRI showed partially visualized terminal ileitis concerning with Crohn's disease. Initial labs showed a normal white blood cell count of 6.6, hemoglobin 13.2, ESR 81, sodium 134, chloride 97, lactic acid was 0.9, C reactive protein 13.8, lipase was normal at 36. UA was obtained which showed 1+ urine protein, 3+ urine ketones otherwise negative. Stool culture was obtained and pending. He was also check for C diff and was positive. Hepatitis-B antigen was negative. TB was also ordered and pending. EKG showed sinus tach with a rate of 118, incomplete right bundle branch. He was given 1 L of LR, Zofran, Toradol while in the ED. he was started on Cipro and Flagyl while in the ED and then started on vancomycin when he was found to be C diff positive. GI was consulted. Subjective: No new complaints today. He was requesting advancement in his diet. Labs reviewed. Review of Systems Review of Systems: All systems reviewed & are unremarkable except as noted in HPI and below Constitutional: Constitutional: Reports as per HPI and Reports no additional constitutional complaints Eyes: Eyes: Reports as per HPI and Reports no additional eye complaints ENT: Reports system reviewed and no additional complaints, except as documented and Reports as per HPI Cardiovascular: Cardiovascular: Reports as per HPI and Reports no additional cardiovascular complaints Respiratory: Respiratory: Reports as per HPI and Reports no additional respiratory complaints Gastrointestinal: Gastrointestinal: Reports as per HPI and Reports no additional gastrointestinal complaints Genitourinary: Genitourinary: Reports no additional male genitourinary complaints and Reports as per HPI Musculoskeletal: Musculoskeletal: Reports no additional musculoskeletal complaints and Reports as per HPI Integumentary/Breasts: Skin/Breast: Reports system reviewed and no additional complaints, except as docu and Reports as per HPI Neurologic: Reports system reviewed and no additional complaints, except as documented and Reports as per HPI Psychiatric: Psychiatric: Reports no additional psychiatric complaints and Reports as per HPI Exam Narrative: General: In no acute distress, well nourished Cardiac: Normal S1 and S2. No murmur, gallops or friction rubs, peripheral pulses intact. Respiratory: Lungs clear to auscultation, no adventitious lung sounds, currently on room air Gastrointestinal: soft, non-distended, non-tender, normoactive bowel sounds. : voiding without difficulty. Neuro: Alert and oriented x4 Objective Data Vital Signs Vital Signs: Vital Signs - 24 hr 07/22/24 16:00 07/22/24 20:00 07/22/24 20:00 Temperature 97.1 F L 97.3 F L Pulse Rate 95 85 Respiratory Rate 18 14 Blood Pressure 137/75 123/86 Pulse Oximetry 96 100 Oxygen Delivery Room Air 07/23/24 05:48 Temperature 97.3 F L Pulse Rate 67 Respiratory Rate 14 Blood Pressure 125/85 Pulse Oximetry 100 Oxygen Delivery Intake/Output Intake/Output: Intake & Output 07/20/24 07/21/24 07/22/24 07/23/24 23:59 23:59 23:59 23:59 Intake Total 1300 1540 3244 958 Balance 1300 1540 3244 958 Meds/Results Medications: Active Medications Generic Name Dose Route Start Last Admin Trade Name Freq PRN Reason Stop Dose Admin Metronidazole 500 mg in 100 mls @ 100 mls/hr 07/20/24 19:00 07/23/24 13:46 Flagyl 500 Mg/Iso Soln 100 Ml IVPB Infused 0500,1300,2100 YOON Infusion Methylprednisolone Sodium Succinate 40 mg 07/22/24 10:20 07/23/24 09:11 Methylprednisolone Sod Succ 40 Mg Vial IV PUSH 40 mg DAILY YOON Administration Polyethylene Glycol 238 gm 07/25/24 21:00 Polyethylene Glycol 3350 238 Gm Bottle PO 07/25/24 21:01 ONCE ONE Polyethylene Glycol 238 gm 07/26/24 04:00 Polyethylene Glycol 3350 238 Gm Bottle PO 07/26/24 04:01 ONCE ONE Trimethobenzamide HCl 200 mg 07/20/24 21:00 Trimethobenzamide Hcl 200 Mg/2 Ml Vial IM Q6H PRN Nausea And Vomiting Vancomycin HCl 125 mg 07/21/24 18:00 07/23/24 12:46 Vancomycin Oral 125 Mg/2.5 Ml Syrup PO 125 mg Q6HR YOON Administration Radiology Results: ITS Impressions Abdomen/Pelvis CT 07/20/24 16:23 IMPRESSION: Ileal enteritis with adjacent phlegmon/early abscess and possible fistulous connection to the adjacent sigmoid. Intrahepatic gas, concerning for portal venous gas, which can be seen with ischemic bowel, inflammatory bowel disease, and pelvic abscess. Correlate for clinical findings of sepsis. Results reported telephonically to Dr. Ferreira by Dr. Buitrago at 4:49 PM on 07/20/2024. Pelvis MRI 07/21/24 14:17 IMPRESSION: 1. Terminal ileitis with fistula to the wall of the rectosigmoid, consistent with Crohn disease. Abdomen MRI 07/21/24 14:23 IMPRESSION: 1. Partially visualized terminal ileitis, consistent with Crohn disease. Labs Labs: Laboratory Results - last 24 hr 07/23/24 06:01 WBC 4.5 RBC 4.91 Hgb 12.8 L Hct 41.9 L MCV 85.3 MCH 26.1 MCHC 30.5 L RDW 12.7 Plt Count 339 MPV 9.9 Immature Gran % (Auto) 1.8 H Neut % (Auto) 71.6 Lymph % (Auto) 8.0 L [place] % (Auto) 18.2 H Eos % (Auto) 0.2 Baso % (Auto) 0.2 Lymph # (Auto) 0.36 L [place] # (Auto) 0.8 H Eos # (Auto) 0.0 Baso # (Auto) 0.0 Abs Immat Gran (auto) 0.08 H Absolute Neuts (auto) 3.2 Absolute Nucleated RBC 0.000 Nucleated RBC % 0.0 Sodium 139 Potassium 4.1 Chloride 99 Carbon Dioxide 31 H Anion Gap 9 BUN 10 Creatinine 0.60 L Estim Creat Clear Calc 189 Estimated GFR > 60 Glucose 103 Calcium 9.1 Total Bilirubin 0.5 AST 36 ALT 40 Alkaline Phosphatase 100 Total Protein 8.0 Albumin 4.1 Quality VTE Prophylaxis VTE prophylaxis: mechanical ordered
[2024-07-23 14:00] VITALS: BP 126/73; PULSE 70; RESP 14; TEMP 36.3; O2SAT 98
[2024-07-23 20:15] VITALS: BP 120/78; PULSE 78; RESP 20; TEMP 35.9; O2SAT 100
[2024-07-24] MEDS: metroNIDAZOLE 500 MG/ISO 100ML 500 MG/100 ML BAG 100 MG IVPB ×3 (05:04→20:19)
[2024-07-24 05:12] VITALS: BP 132/81; PULSE 83; RESP 14; TEMP 36.1; O2SAT 100
[2024-07-24] MEDS: VANCOMYCIN ORAL 125 MG/2.5 ML SYRUP PO ×3 (06:03→17:58)
[2024-07-24 07:24] LABS: Basophils Percent Auto 0.2 % (0.2-1.2); Eosinophils Percent Auto 0.2 % (0-4.4); Hematocrit 41.6 % (42.0-52.0); Immature Granulocyte Absolute 0.06 K/mm3 (0.00-0.031); Immature Granulocyte Percent A 1.1 % (0-0.5); Lymphocytes Absolute Auto 0.56 K/mm3 (0.9-3.2); Lymphocytes Percent Auto 10.5 % (18.3-44.2); Mean Corpuscular HGB Conc 31.3 g/dl (32-36); Mean Corpuscular Hemoglobin 26.4 pg (26-34); Mean Corpuscular Volume 84.4 fl (80-100); Mean Platelet Volume 10.3 fl (7.4-10.4); Monocytes Absolute Auto 0.9 K/mm3 (0.1-0.6); Monocytes Percent Auto 16.5 % (2.6-8.5); Neutrophils Absolute Auto 3.8 K/mm3 (1.3-6.7); Neutrophils Percent Auto 71.5 % (45.5-73.1); Platelet Count Result 374 k/mm3 (150-375); Red Blood Count 4.93 M/mm3 (4.6-6.20); Red Cell Distribution Width 12.9 % (11.5-14.5); White Blood Count 5.3 K/mm3 (4.5-10.0)
--- NOTE | 2024-07-24 07:42 | P.PNIM_ITS ---
Progress Note: A&P Assessment and Plan (1) Sepsis: Code(s): A41.9 - Sepsis, unspecified organism Status: Acute Assessment and Plan: * Initially meeting sepsis criteria with a temp of 102.7?, pulse 129, respirato ry rate ranging 20-23, known source of infection C diff colitis * Stool cultures negative on final read * C diff positive * White blood cell remains count normal * He was given 1 L of LR in the ED * Blood cultures showing no growth to date on preliminary read * Continue Vancomycin and Flagyl (2) Bowel disease, inflammatory: Code(s): K52.9 - Noninfective gastroenteritis and colitis, unspecified Status: Acute Assessment and Plan: * Abdomen/pelvis CT shown ileal enteritis with adjacent folic him on/early abscess and possible fistulous connection to the adjacent sigmoid, intrahepatic gas concerning for portal venous gas which can be seen with ischemic bowel, inflammatory bowel disease, pelvic abscess. * Pelvic MRI shows terminal ileitis with fistula to the wall of the rectosigmoid consistent with Crohn's disease * Abdomen MRI shows partially visualized terminal ileitis consistent with Crohn's disease * GI consulted and following * Continue Vancomycin and Flagyl * Discontinue Cipro * Steroids started per GI * C diff was positive * Initial ESR 81, CRP 13.8 * White blood cell count 5.3 today * Plan for Colonoscopy and biopsy on Friday * Placed on high fiber diet, tolerating well. * He will be clear liquid diet after midnight (3) Crohn's colitis: Code(s): K50.10 - Crohn's disease of large intestine without complications Status: Acute Assessment and Plan: * New diagnosis * See above for detail (4) Regional enteritis of ileum: Code(s): K50.00 - Crohn's disease of small intestine without complications Status: Acute Assessment and Plan: See above (5) Anemia: Code(s): D64.9 - Anemia, unspecified Status: Acute Assessment and Plan: * Hemoglobin 12.8 * Will check vitamin B12, folic acid, ferritin, iron panel, TSH * Iron 17, Ferritin 1955, Vitamin B 12 216, TSH 0.101, free t4 1.40. total T3 0.99 * Patient was given iron and vitamin B12 yesterday infusion Time Spent With Patient Time with patient: 15 - 25 minutes Subjective Date/time seen: 11/30/24 07:42 Interval history: Interval history: This is a 23-year-old with no significant past medical history who presents with abdominal pain, fever, vomiting, and diarrhea. Patient states that he has had abdominal pain off and on for quite some time. He had been evaluated in the ER back in April and diagnosed with enteritis. He was sent home with antibiotics which cleared up his symptoms. He started having symptoms again about 5 days ago with fever, up to 103, severe abdominal pain, nausea, vomiting, and diarrhea. He also noted to have an EGD as an outpatient which did not show any significant findings. He does report acid reflux, abdominal pain, diarrhea currently. He denies any nausea, vomiting, chest pain, shortness of breath. He denies any family history of Crohn's disease or inflammatory bowel disorders. He presented here for further evaluation. Workup in the hospital included a CT of the abdomen and pelvis which shows ileal enteritis with adjacent phlegmon/early abscess and possible fistulous connection to the adjacent sigmoid, intrahepatic gas concerning for portal venous gas which can be seen with ischemic bowel, inflammatory bowel disease, or pelvic abscess. Pelvis MRI shows terminal ileitis with fistula to the wall of the rectosigmoid concerning with Crohn's disease. Abdomen MRI showed partially visualized terminal ileitis concerning with Crohn's disease. Initial labs showed a normal white blood cell count of 6.6, hemoglobin 13.2, ESR 81, sodium 134, chloride 97, lactic acid was 0.9, C reactive protein 13.8, lipase was normal at 36. UA was obtained which showed 1+ urine protein, 3+ urine ketones otherwise negative. Stool culture was obtained and pending. He was also check for C diff and was positive. Hepatitis-B antigen was negative. TB was also ordered and pending. EKG showed sinus tach with a rate of 118, incomplete right bundle branch. He was given 1 L of LR, Zofran, Toradol while in the ED. he was started on Cipro and Flagyl while in the ED and then started on vancomycin when he was found to be C diff positive. GI was consulted. Subjective: Patient denies any new complaints today. Tolerating advancement in his diet. Labs reviewed. Review of Systems Review of Systems: All systems reviewed & are unremarkable except as noted in HPI and below Constitutional: Constitutional: Reports as per HPI and Reports no additional constitutional complaints Eyes: Eyes: Reports as per HPI and Reports no additional eye complaints ENT: Reports system reviewed and no additional complaints, except as documented and Reports as per HPI Cardiovascular: Cardiovascular: Reports as per HPI and Reports no additional cardiovascular complaints Respiratory: Respiratory: Reports as per HPI and Reports no additional respiratory complaints Gastrointestinal: Gastrointestinal: Reports as per HPI and Reports no additional gastrointestinal complaints Genitourinary: Genitourinary: Reports no additional male genitourinary complaints and Reports as per HPI Musculoskeletal: Musculoskeletal: Reports no additional musculoskeletal complaints and Reports as per HPI Integumentary/Breasts: Skin/Breast: Reports system reviewed and no additional complaints, except as docu and Reports as per HPI Neurologic: Reports system reviewed and no additional complaints, except as documented and Reports as per HPI Psychiatric: Psychiatric: Reports no additional psychiatric complaints and Reports as per HPI Exam Narrative: General: In no acute distress, well nourished Cardiac: Normal S1 and S2. No murmur, gallops or friction rubs, peripheral pulses intact. Respiratory: Lungs clear to auscultation, no adventitious lung sounds, currently on room air Gastrointestinal: soft, non-distended, non-tender, normoactive bowel sounds. : voiding without difficulty. Neuro: Alert and oriented x4 Objective Data Vital Signs Vital Signs: Vital Signs - 24 hr 07/23/24 08:00 07/23/24 14:00 07/23/24 20:00 Temperature 97.4 F L Pulse Rate 70 Respiratory Rate 14 Blood Pressure 126/73 Pulse Oximetry 98 Oxygen Delivery Room Air Room Air 07/23/24 20:15 07/24/24 05:12 Temperature 96.6 F L 97 F L Pulse Rate 78 83 Respiratory Rate 20 14 Blood Pressure 120/78 132/81 Pulse Oximetry 100 100 Oxygen Delivery Intake/Output Intake/Output: Intake & Output 07/21/24 07/22/24 07/23/24 07/24/24 23:59 23:59 23:59 23:59 Intake Total 1540 3244 1298 400 Balance 1540 3244 1298 400 Meds/Results Medications: Active Medications Generic Name Dose Route Start Last Admin Trade Name Freq PRN Reason Stop Dose Admin Metronidazole 500 mg in 100 mls @ 100 mls/hr 07/20/24 19:00 07/24/24 06:04 Flagyl 500 Mg/Iso Soln 100 Ml IVPB Infused 0500,1300,2100 YOON Infusion Methylprednisolone Sodium Succinate 40 mg 07/22/24 10:20 07/23/24 09:11 Methylprednisolone Sod Succ 40 Mg Vial IV PUSH 40 mg DAILY YOON Administration Polyethylene Glycol 238 gm 07/25/24 21:00 Polyethylene Glycol 3350 238 Gm Bottle PO 07/25/24 21:01 ONCE ONE Polyethylene Glycol 238 gm 07/26/24 04:00 Polyethylene Glycol 3350 238 Gm Bottle PO 07/26/24 04:01 ONCE ONE Trimethobenzamide HCl 200 mg 07/20/24 21:00 Trimethobenzamide Hcl 200 Mg/2 Ml Vial IM Q6H PRN Nausea And Vomiting Vancomycin HCl 125 mg 07/21/24 18:00 07/24/24 06:03 Vancomycin Oral 125 Mg/2.5 Ml Syrup PO 125 mg Q6HR YOON Administration Radiology Results: ITS Impressions Abdomen/Pelvis CT 07/20/24 16:23 IMPRESSION: Ileal enteritis with adjacent phlegmon/early abscess and possible fistulous connection to the adjacent sigmoid. Intrahepatic gas, concerning for portal venous gas, which can be seen with ischemic bowel, inflammatory bowel disease, and pelvic abscess. Correlate for clinical findings of sepsis. Results reported telephonically to Dr. Ferreira by Dr. Buitrago at 4:49 PM on 07/20/2024. Pelvis MRI 07/21/24 14:17 IMPRESSION: 1. Terminal ileitis with fistula to the wall of the rectosigmoid, consistent with Crohn disease. Abdomen MRI 07/21/24 14:23 IMPRESSION: 1. Partially visualized terminal ileitis, consistent with Crohn disease. Labs Labs: Laboratory Results - last 24 hr 07/24/24 06:26 WBC 5.3 RBC 4.93 Hgb 13.0 L Hct 41.6 L MCV 84.4 MCH 26.4 MCHC 31.3 L RDW 12.9 Plt Count 374 MPV 10.3 Immature Gran % (Auto) 1.1 H Neut % (Auto) 71.5 Lymph % (Auto) 10.5 L [place] % (Auto) 16.5 H Eos % (Auto) 0.2 Baso % (Auto) 0.2 Lymph # (Auto) 0.56 L [place] # (Auto) 0.9 H Eos # (Auto) 0.0 Baso # (Auto) 0.0 Abs Immat Gran (auto) 0.06 H Absolute Neuts (auto) 3.8 Absolute Nucleated RBC 0.000 Nucleated RBC % 0.0 Quality VTE Prophylaxis VTE prophylaxis: mechanical ordered
[2024-07-24 07:48] LABS: Alanine Aminotransferase 35 U/L (6-50); Alkaline Phosphatase 83 U/L (38-126); Anion Gap 8 mmol/L (4-12); Aspartate Amino Transferase 32 U/L (17-59); Bilirubin,Total 0.5 mg/dL (0.2-1.3); Blood Urea Nitrogen 14 mg/dL (9-20); Calcium 9.1 mg/dL (8.4-10.2); Carbon Dioxide 31 mmol/L (22-30); Chloride 100 mmol/L (98-107); Estimated CRCL calculation 164 ml/min; Estimated Glomerular Filt Rate > 60; Glucose 86 mg/dL (65-110); Sodium 139 mmol/L (137-145)
[2024-07-24] MEDS: methylPREDNISolone SOD SUCC 40 MG VIAL IV PUSH (08:33)
--- NOTE | 2024-07-24 11:58 | P.PNGI_ITS ---
Progress Note: A&P Assessment and Plan (1) Crohn's colitis: Code(s): K50.10 - Crohn's disease of large intestine without complications Status: Acute (2) Bowel disease, inflammatory: Code(s): K52.9 - Noninfective gastroenteritis and colitis, unspecified Status: Acute Plan OVERALL PATIENT IS DOING WELL CURRENTLY PATIENT IS ON STEROIDS AND ANTIBIOTICS FOR C DIFF PATIENT DENIES ANY FEVER OR CHILLS DENIES ANY ABDOMINAL PAIN. PATIENT IS SUPPOSED TO GET A COLONOSCOPY ON FRIDAY. REGULAR GI TEAM WILL RESUME PATIENT GIVEN MED WILL CHECK CRP TOMORROW MORNING Subjective Date/time seen: 07/24/24 11:58 Interval history: PATIENT IS DOING WELL DENIES ANY NAUSEA VOMITING ABDOMINAL PAIN PATIENT IS BEING SEEN FOR CROHN'S DISEASE AND C DIFF PATIENT LAB WORKUP WAS REVIEWED Review of Systems Review of Systems: NEGATIVE Exam Narrative: DOES NOT APPEAR TO BE IN ANY DISTRESS Neck: Other: SUPPLE Resp: Other: CLEAR TO AUSCULTATION NORMAL BREATH SOUNDS Cardio: Other: S1-S2 REGULAR RATE RHYTHM GI: Other: ABDOMEN SOFT NONTENDER NO REBOUND NO GUARDING BOWEL SOUNDS POSITIVE Skin: Other: INTACT Neuro: Other: INTACT Objective Data Vital Signs Vital Signs: Vital Signs - 24 hr 07/23/24 14:00 07/23/24 20:00 07/23/24 20:15 Temperature 97.4 F L 96.6 F L Pulse Rate 70 78 Respiratory Rate 14 20 Blood Pressure 126/73 120/78 Pulse Oximetry 98 100 Oxygen Delivery Room Air 07/24/24 05:12 07/24/24 08:00 Temperature 97 F L Pulse Rate 83 Respiratory Rate 14 Blood Pressure 132/81 Pulse Oximetry 100 Oxygen Delivery Room Air Intake/Output Intake/Output: Intake & Output 07/21/24 07/22/24 07/23/24 07/24/24 23:59 23:59 23:59 23:59 Intake Total 1540 3244 1298 518 Balance 1540 3244 1298 518 Meds/Results Medications: Active Medications Generic Name Dose Route Start Last Admin Trade Name Freq PRN Reason Stop Dose Admin Metronidazole 500 mg in 100 mls @ 100 mls/hr 07/20/24 19:00 07/24/24 06:04 Flagyl 500 Mg/Iso Soln 100 Ml IVPB Infused 0500,1300,2100 YOON Infusion Methylprednisolone Sodium Succinate 40 mg 07/22/24 10:20 07/24/24 08:33 Methylprednisolone Sod Succ 40 Mg Vial IV PUSH 40 mg DAILY YOON Administration Polyethylene Glycol 238 gm 07/25/24 21:00 Polyethylene Glycol 3350 238 Gm Bottle PO 07/25/24 21:01 ONCE ONE Polyethylene Glycol 238 gm 07/26/24 04:00 Polyethylene Glycol 3350 238 Gm Bottle PO 07/26/24 04:01 ONCE ONE Trimethobenzamide HCl 200 mg 07/20/24 21:00 Trimethobenzamide Hcl 200 Mg/2 Ml Vial IM Q6H PRN Nausea And Vomiting Vancomycin HCl 125 mg 07/21/24 18:00 07/24/24 06:03 Vancomycin Oral 125 Mg/2.5 Ml Syrup PO 125 mg Q6HR YOON Administration Radiology Results: ITS Impressions Abdomen/Pelvis CT 07/20/24 16:23 IMPRESSION: Ileal enteritis with adjacent phlegmon/early abscess and possible fistulous connection to the adjacent sigmoid. Intrahepatic gas, concerning for portal venous gas, which can be seen with ischemic bowel, inflammatory bowel disease, and pelvic abscess. Correlate for clinical findings of sepsis. Results reported telephonically to Dr. Ferreira by Dr. Buitrago at 4:49 PM on 07/20/2024. Pelvis MRI 07/21/24 14:17 IMPRESSION: 1. Terminal ileitis with fistula to the wall of the rectosigmoid, consistent with Crohn disease. Abdomen MRI 07/21/24 14:23 IMPRESSION: 1. Partially visualized terminal ileitis, consistent with Crohn disease. Labs Labs: Laboratory Results - last 24 hr 07/24/24 06:26 WBC 5.3 RBC 4.93 Hgb 13.0 L Hct 41.6 L MCV 84.4 MCH 26.4 MCHC 31.3 L RDW 12.9 Plt Count 374 MPV 10.3 Immature Gran % (Auto) 1.1 H Neut % (Auto) 71.5 Lymph % (Auto) 10.5 L [place] % (Auto) 16.5 H Eos % (Auto) 0.2 Baso % (Auto) 0.2 Lymph # (Auto) 0.56 L [place] # (Auto) 0.9 H Eos # (Auto) 0.0 Baso # (Auto) 0.0 Abs Immat Gran (auto) 0.06 H Absolute Neuts (auto) 3.8 Absolute Nucleated RBC 0.000 Nucleated RBC % 0.0 Sodium 139 Potassium 4.0 Chloride 100 Carbon Dioxide 31 H Anion Gap 8 BUN 14 Creatinine 0.70 Estim Creat Clear Calc 164 Estimated GFR > 60 Glucose 86 Calcium 9.1 Total Bilirubin 0.5 AST 32 ALT 35 Alkaline Phosphatase 83 Total Protein 7.0 Albumin 4.0
[2024-07-24 13:47] LABS: CRP 5.8 mg/dL (<1.0)
[2024-07-24 14:00] VITALS: BP 123/60; PULSE 86; RESP 16; TEMP 36.3; O2SAT 93
[2024-07-24 22:00] VITALS: BP 125/71; PULSE 75; RESP 18; TEMP 36.2; O2SAT 100
[2024-07-25] MEDS: VANCOMYCIN ORAL 125 MG/2.5 ML SYRUP PO ×4 (00:28→17:50)
[2024-07-25] MEDS: metroNIDAZOLE 500 MG/ISO 100ML 500 MG/100 ML BAG 100 MG IVPB ×3 (05:06→21:29)
[2024-07-25 06:00] VITALS: BP 125/73; PULSE 63; RESP 16; TEMP 36.2; O2SAT 99
[2024-07-25 06:45] LABS: Basophils Percent Auto 0.7 % (0.2-1.2); Eosinophils Percent Auto 0.3 % (0-4.4); Hemoglobin 12.8 g/dL (14.0-18.0); Immature Granulocyte Absolute 0.11 K/mm3 (0.00-0.031); Immature Granulocyte Percent A 1.8 % (0-0.5); Lymphocytes Absolute Auto 0.78 K/mm3 (0.9-3.2); Lymphocytes Percent Auto 12.7 % (18.3-44.2); Mean Corpuscular HGB Conc 31.2 g/dl (32-36); Mean Corpuscular Hemoglobin 26.2 pg (26-34); Mean Corpuscular Volume 83.8 fl (80-100); Mean Platelet Volume 9.6 fl (7.4-10.4); Monocytes Absolute Auto 1.1 K/mm3 (0.1-0.6); Monocytes Percent Auto 18.2 % (2.6-8.5); Neutrophils Absolute Auto 4.1 K/mm3 (1.3-6.7); Neutrophils Percent Auto 66.3 % (45.5-73.1); Platelet Count Result 368 k/mm3 (150-375); Red Blood Count 4.89 M/mm3 (4.6-6.20); Red Cell Distribution Width 12.8 % (11.5-14.5); White Blood Count 6.2 K/mm3 (4.5-10.0)
[2024-07-25 07:03] LABS: Alanine Aminotransferase 40 U/L (6-50); Albumin Level 3.8 g/dL (3.5-5.1); Alkaline Phosphatase 79 U/L (38-126); Anion Gap 4 mmol/L (4-12); Aspartate Amino Transferase 44 U/L (17-59); Bilirubin,Total 0.4 mg/dL (0.2-1.3); Blood Urea Nitrogen 13 mg/dL (9-20); Calcium 8.7 mg/dL (8.4-10.2); Carbon Dioxide 32 mmol/L (22-30); Chloride 101 mmol/L (98-107); Estimated CRCL calculation 145 ml/min; Estimated Glomerular Filt Rate > 60; Glucose 90 mg/dL (65-110); Potassium 3.9 mmol/L (3.4-5.0); Sodium 137 mmol/L (137-145)
--- NOTE | 2024-07-25 07:40 | P.PNIM_ITS ---
Progress Note: A&P Assessment and Plan (1) Sepsis: Code(s): A41.9 - Sepsis, unspecified organism Status: Acute Assessment and Plan: * Initially meeting sepsis criteria with a temp of 102.7?, pulse 129, respirato ry rate ranging 20-23, known source of infection C diff colitis * Stool cultures negative on final read * C diff positive * White blood cell remains count normal * He was given 1 L of LR in the ED * Blood cultures still showing no growth to date on preliminary read * Continue Vancomycin and Flagyl * Will switch Flagyl to p.o. post colonoscopy (2) Bowel disease, inflammatory: Code(s): K52.9 - Noninfective gastroenteritis and colitis, unspecified Status: Acute Assessment and Plan: * Abdomen/pelvis CT shown ileal enteritis with adjacent folic him on/early abscess and possible fistulous connection to the adjacent sigmoid, intrahepatic gas concerning for portal venous gas which can be seen with ischemic bowel, inflammatory bowel disease, pelvic abscess. * Pelvic MRI shows terminal ileitis with fistula to the wall of the rectosigmoid consistent with Crohn's disease * Abdomen MRI shows partially visualized terminal ileitis consistent with Crohn's disease * GI consulted and following * Continue Vancomycin and Flagyl * Discontinue Cipro * Steroids started per GI * C diff was positive * Initial ESR 81, CRP 13.8 * White blood cell count 6.2 today * Plan for Colonoscopy and biopsy tomorrow * Clear liquid diet with bowel prep today (3) Crohn's colitis: Code(s): K50.10 - Crohn's disease of large intestine without complications Status: Acute Assessment and Plan: * New diagnosis * See above for detail (4) Regional enteritis of ileum: Code(s): K50.00 - Crohn's disease of small intestine without complications Status: Acute Assessment and Plan: See above (5) Anemia: Code(s): D64.9 - Anemia, unspecified Status: Acute Assessment and Plan: * Hemoglobin 12.8 * Will check vitamin B12, folic acid, ferritin, iron panel, TSH * Iron 17, Ferritin 1955, Vitamin B 12 216, TSH 0.101, free t4 1.40. total T3 0.99 * Patient was given iron and vitamin B12 x 1 dose Time Spent With Patient Time with patient: 15 - 25 minutes Subjective Date/time seen: 07/25/24 07:40 Interval history: Interval history: This is a 23-year-old with no significant past medical history who presents with abdominal pain, fever, vomiting, and diarrhea. Patient states that he has had abdominal pain off and on for quite some time. He had been evaluated in the ER back in April and diagnosed with enteritis. He was sent home with antibiotics which cleared up his symptoms. He started having symptoms again about 5 days ago with fever, up to 103, severe abdominal pain, nausea, vomiting, and diarrhea. He also noted to have an EGD as an outpatient which did not show any significant findings. He does report acid reflux, abdominal pain, diarrhea currently. He denies any nausea, vomiting, chest pain, shortness of breath. He denies any family history of Crohn's disease or inflammatory bowel disorders. He presented here for further evaluation. Workup in the hospital included a CT of the abdomen and pelvis which shows ileal enteritis with adjacent phlegmon/early abscess and possible fistulous connection to the adjacent sigmoid, intrahepatic gas concerning for portal venous gas which can be seen with ischemic bowel, inflammatory bowel disease, or pelvic abscess. Pelvis MRI shows terminal ileitis with fistula to the wall of the rectosigmoid concerning with Crohn's disease. Abdomen MRI showed partially visualized terminal ileitis concerning with Crohn's disease. Initial labs showed a normal white blood cell count of 6.6, hemoglobin 13.2, ESR 81, sodium 134, chloride 97, lactic acid was 0.9, C reactive protein 13.8, lipase was normal at 36. UA was obtained which showed 1+ urine protein, 3+ urine ketones otherwise negative. Stool culture was obtained and pending. He was also check for C diff and was positive. Hepatitis-B antigen was negative. TB was also ordered and pending. EKG showed sinus tach with a rate of 118, incomplete right bundle branch. He was given 1 L of LR, Zofran, Toradol while in the ED. he was started on Cipro and Flagyl while in the ED and then started on vancomycin when he was found to be C diff positive. GI was consulted. Subjective: Patient denies any new complaints today. He is currently on clear liquid diet and bowel prep for colonoscopy tomorrow. He can likely discharge tomorrow post colonoscopy. Labs reviewed. Review of Systems Review of Systems: All systems reviewed & are unremarkable except as noted in HPI and below Constitutional: Constitutional: Reports as per HPI and Reports no additional constitutional complaints Eyes: Eyes: Reports as per HPI and Reports no additional eye complaints ENT: Reports system reviewed and no additional complaints, except as documented and Reports as per HPI Cardiovascular: Cardiovascular: Reports as per HPI and Reports no additional cardiovascular complaints Respiratory: Respiratory: Reports as per HPI and Reports no additional respiratory complaints Gastrointestinal: Gastrointestinal: Reports as per HPI and Reports no additional gastrointestinal complaints Genitourinary: Genitourinary: Reports no additional male genitourinary complaints and Reports as per HPI Musculoskeletal: Musculoskeletal: Reports no additional musculoskeletal complaints and Reports as per HPI Integumentary/Breasts: Skin/Breast: Reports system reviewed and no additional complaints, except as docu and Reports as per HPI Neurologic: Reports system reviewed and no additional complaints, except as documented and Reports as per HPI Psychiatric: Psychiatric: Reports no additional psychiatric complaints and Reports as per HPI Exam Narrative: General: In no acute distress, well nourished Cardiac: Normal S1 and S2. No murmur, gallops or friction rubs, peripheral pulses intact. Respiratory: Lungs clear to auscultation, no adventitious lung sounds, currently on room air Gastrointestinal: soft, non-distended, non-tender, normoactive bowel sounds. : voiding without difficulty. Neuro: Alert and oriented x4 Objective Data Vital Signs Vital Signs: Vital Signs - 24 hr 07/24/24 08:00 07/24/24 14:00 07/24/24 22:00 Temperature 97.3 F L 97.2 F L Pulse Rate 86 75 Respiratory Rate 16 18 Blood Pressure 123/60 125/71 Pulse Oximetry 93 100 Oxygen Delivery Room Air 07/25/24 06:00 Temperature 97.1 F L Pulse Rate 63 Respiratory Rate 16 Blood Pressure 125/73 Pulse Oximetry 99 Oxygen Delivery Intake/Output Intake/Output: Intake & Output 07/22/24 07/23/24 07/24/24 07/25/24 23:59 23:59 23:59 23:59 Intake Total 3244 1298 1496 150 Balance 3244 1298 1496 150 Meds/Results Medications: Active Medications Generic Name Dose Route Start Last Admin Trade Name Freq PRN Reason Stop Dose Admin Metronidazole 500 mg in 100 mls @ 100 mls/hr 07/20/24 19:00 07/25/24 05:06 Flagyl 500 Mg/Iso Soln 100 Ml IVPB 100 mls/hr 0500,1300,2100 YOON Administration Methylprednisolone Sodium Succinate 40 mg 07/22/24 10:20 07/24/24 08:33 Methylprednisolone Sod Succ 40 Mg Vial IV PUSH 40 mg DAILY YOON Administration Polyethylene Glycol 238 gm 07/25/24 21:00 Polyethylene Glycol 3350 238 Gm Bottle PO 07/25/24 21:01 ONCE ONE Polyethylene Glycol 238 gm 07/26/24 04:00 Polyethylene Glycol 3350 238 Gm Bottle PO 07/26/24 04:01 ONCE ONE Trimethobenzamide HCl 200 mg 07/20/24 21:00 Trimethobenzamide Hcl 200 Mg/2 Ml Vial IM Q6H PRN Nausea And Vomiting Vancomycin HCl 125 mg 07/21/24 18:00 07/25/24 05:07 Vancomycin Oral 125 Mg/2.5 Ml Syrup PO 125 mg Q6HR YOON Administration Radiology Results: ITS Impressions Abdomen/Pelvis CT 07/20/24 16:23 IMPRESSION: Ileal enteritis with adjacent phlegmon/early abscess and possible fistulous connection to the adjacent sigmoid. Intrahepatic gas, concerning for portal venous gas, which can be seen with ischemic bowel, inflammatory bowel disease, and pelvic abscess. Correlate for clinical findings of sepsis. Results reported telephonically to Dr. Ferreira by Dr. Buitrago at 4:49 PM on 07/20/2024. Pelvis MRI 07/21/24 14:17 IMPRESSION: 1. Terminal ileitis with fistula to the wall of the rectosigmoid, consistent with Crohn disease. Abdomen MRI 07/21/24 14:23 IMPRESSION: 1. Partially visualized terminal ileitis, consistent with Crohn disease. Labs Labs: Laboratory Results - last 24 hr 07/24/24 07/24/24 07/25/24 06:22 06:26 06:37 WBC 6.2 RBC 4.89 Hgb 12.8 L Hct 41.0 L MCV 83.8 MCH 26.2 MCHC 31.2 L RDW 12.8 Plt Count 368 MPV 9.6 Immature Gran % (Auto) 1.8 H Neut % (Auto) 66.3 Lymph % (Auto) 12.7 L [place] % (Auto) 18.2 H Eos % (Auto) 0.3 Baso % (Auto) 0.7 Lymph # (Auto) 0.78 L [place] # (Auto) 1.1 H Eos # (Auto) 0.0 Baso # (Auto) 0.0 Abs Immat Gran (auto) 0.11 H Absolute Neuts (auto) 4.1 Absolute Nucleated RBC 0.000 Nucleated RBC % 0.0 Sodium 139 137 Potassium 4.0 3.9 Chloride 100 101 Carbon Dioxide 31 H 32 H Anion Gap 8 4 BUN 14 13 Creatinine 0.70 0.80 Estim Creat Clear Calc 164 145 Estimated GFR > 60 > 60 Glucose 86 90 Calcium 9.1 8.7 Total Bilirubin 0.5 0.4 AST 32 44 ALT 35 40 Alkaline Phosphatase 83 79 C-Reactive Protein 5.8 H Total Protein 7.0 7.0 Albumin 4.0 3.8 Quality VTE Prophylaxis VTE prophylaxis: mechanical ordered
[2024-07-25] MEDS: methylPREDNISolone SOD SUCC 40 MG VIAL IV PUSH (08:23)
--- NOTE | 2024-07-25 11:51 | WPDGIPROGNO ---
Progress Note: A&P Assessment and Plan (1) Crohn's colitis: Code(s): K50.10 - Crohn's disease of large intestine without complications Status: Acute (2) Anemia: Code(s): D64.9 - Anemia, unspecified Status: Acute Plan overall doing well will proceed with a colonoscopy tomorrow as planned procedure has been discussed NPO after midnight Subjective Date/time seen: 07/25/24 11:51 Interval history: patient is doing well denies any abdominal pain nausea vomiting diarrhea or constipation denies any blood in the stool patient is currently on vancomycin, Flagyl on Solu-Medrol CRP is down to 5.8 patient is being seen for possible Crohn's disease Review of Systems Review of Systems: otherwise negative Exam Narrative: no acute distress HENMT: Other: pupil equally reactive Neck: Other: supple Resp: Other: air entry equal bilateral clear Cardio: Other: S1-S2 regular rate rhythm GI: Other: abdomenis soft nontender no guarding no rebound no rigidit Objective Data Vital Signs Vital Signs: Vital Signs - 24 hr 07/24/24 14:00 07/24/24 22:00 07/25/24 06:00 Temperature 97.3 F L 97.2 F L 97.1 F L Pulse Rate 86 75 63 Respiratory Rate 16 18 16 Blood Pressure 123/60 125/71 125/73 Pulse Oximetry 93 100 99 Intake/Output Intake/Output: Intake & Output 07/22/24 07/23/24 07/24/24 07/25/24 23:59 23:59 23:59 23:59 Intake Total 3244 1298 1496 390 Balance 3244 1298 1496 390 Meds/Results Medications: Active Medications Generic Name Dose Route Start Last Admin Trade Name Freq PRN Reason Stop Dose Admin Metronidazole 500 mg in 100 mls @ 100 mls/hr 07/20/24 19:00 07/25/24 05:06 Flagyl 500 Mg/Iso Soln 100 Ml IVPB 100 mls/hr 0500,1300,2100 YOON Administration Methylprednisolone Sodium Succinate 40 mg 07/22/24 10:20 07/25/24 08:23 Methylprednisolone Sod Succ 40 Mg Vial IV PUSH 40 mg DAILY YOON Administration Polyethylene Glycol 238 gm 07/25/24 21:00 Polyethylene Glycol 3350 238 Gm Bottle PO 07/25/24 21:01 ONCE ONE Polyethylene Glycol 238 gm 07/26/24 04:00 Polyethylene Glycol 3350 238 Gm Bottle PO 07/26/24 04:01 ONCE ONE Trimethobenzamide HCl 200 mg 07/20/24 21:00 Trimethobenzamide Hcl 200 Mg/2 Ml Vial IM Q6H PRN Nausea And Vomiting Vancomycin HCl 125 mg 07/21/24 18:00 07/25/24 05:07 Vancomycin Oral 125 Mg/2.5 Ml Syrup PO 125 mg Q6HR YOON Administration Radiology Results: ITS Impressions Abdomen/Pelvis CT 07/20/24 16:23 IMPRESSION: Ileal enteritis with adjacent phlegmon/early abscess and possible fistulous connection to the adjacent sigmoid. Intrahepatic gas, concerning for portal venous gas, which can be seen with ischemic bowel, inflammatory bowel disease, and pelvic abscess. Correlate for clinical findings of sepsis. Results reported telephonically to Dr. Ferreira by Dr. Buitrago at 4:49 PM on 07/20/2024. Pelvis MRI 07/21/24 14:17 IMPRESSION: 1. Terminal ileitis with fistula to the wall of the rectosigmoid, consistent with Crohn disease. Abdomen MRI 07/21/24 14:23 IMPRESSION: 1. Partially visualized terminal ileitis, consistent with Crohn disease. Labs Labs: Laboratory Results - last 24 hr 07/24/24 07/25/24 06:22 06:37 WBC 6.2 RBC 4.89 Hgb 12.8 L Hct 41.0 L MCV 83.8 MCH 26.2 MCHC 31.2 L RDW 12.8 Plt Count 368 MPV 9.6 Immature Gran % (Auto) 1.8 H Neut % (Auto) 66.3 Lymph % (Auto) 12.7 L [place] % (Auto) 18.2 H Eos % (Auto) 0.3 Baso % (Auto) 0.7 Lymph # (Auto) 0.78 L [place] # (Auto) 1.1 H Eos # (Auto) 0.0 Baso # (Auto) 0.0 Abs Immat Gran (auto) 0.11 H Absolute Neuts (auto) 4.1 Absolute Nucleated RBC 0.000 Nucleated RBC % 0.0 Sodium 137 Potassium 3.9 Chloride 101 Carbon Dioxide 32 H Anion Gap 4 BUN 13 Creatinine 0.80 Estim Creat Clear Calc 145 Estimated GFR > 60 Glucose 90 Calcium 8.7 Total Bilirubin 0.4 AST 44 ALT 40 Alkaline Phosphatase 79 C-Reactive Protein 5.8 H Total Protein 7.0 Albumin 3.8
[2024-07-25 14:00] VITALS: BP 140/79; PULSE 91; RESP 16; TEMP 36.7; O2SAT 98
[2024-07-25] MEDS: polyethylene glycoL 3350 238 GM BOTTLE 169 GM PO (21:27)
[2024-07-25 21:42] VITALS: BP 126/79; PULSE 72; RESP 18; TEMP 36.1; O2SAT 98
[2024-07-26] MEDS: VANCOMYCIN ORAL 125 MG/2.5 ML SYRUP PO ×3 (00:17→12:30)
[2024-07-26] MEDS: polyethylene glycoL 3350 238 GM BOTTLE 169 GM PO (04:04)
[2024-07-26] MEDS: metroNIDAZOLE 500 MG/ISO 100ML 500 MG/100 ML BAG 100 MG IVPB ×2 (05:01→12:34)
--- NOTE | 2024-07-26 05:46 | PC.NURSE ---
Dr. Ty notifed about pt having two orders to take Miralax 238gm. Telephone order ( read back to physician) was given to adjust Miralax bowel prep in half. Consume 119gm @2100 and 119gm @0400.
[2024-07-26 05:50] VITALS: BP 117/85; PULSE 83; RESP 18; TEMP 36.1; O2SAT 100
[2024-07-26 07:18] LABS: Basophils Absolute Auto 0.1 K/mm3 (0.0-0.1); Eosinophils Percent Auto 0.5 % (0-4.4); Hematocrit 42.9 % (42.0-52.0); Hemoglobin 13.5 g/dL (14.0-18.0); Immature Granulocyte Percent A 3.7 % (0-0.5); Lymphocytes Absolute Auto 1.04 K/mm3 (0.9-3.2); Lymphocytes Percent Auto 12.9 % (18.3-44.2); Mean Corpuscular HGB Conc 31.5 g/dl (32-36); Mean Corpuscular Hemoglobin 26.4 pg (26-34); Mean Corpuscular Volume 83.8 fl (80-100); Mean Platelet Volume 9.7 fl (7.4-10.4); Monocytes Absolute Auto 0.8 K/mm3 (0.1-0.6); Monocytes Percent Auto 10.4 % (2.6-8.5); Neutrophils Absolute Auto 5.8 K/mm3 (1.3-6.7); Neutrophils Percent Auto 71.5 % (45.5-73.1); Platelet Count Result 443 k/mm3 (150-375); Red Blood Count 5.12 M/mm3 (4.6-6.20); Red Cell Distribution Width 12.9 % (11.5-14.5); White Blood Count 8.1 K/mm3 (4.5-10.0)
[2024-07-26 07:27] LABS: Alanine Aminotransferase 60 U/L (6-50); Alkaline Phosphatase 75 U/L (38-126); Anion Gap 6 mmol/L (4-12); Aspartate Amino Transferase 69 U/L (17-59); Bilirubin,Total 0.4 mg/dL (0.2-1.3); Blood Urea Nitrogen 10 mg/dL (9-20); Calcium 8.6 mg/dL (8.4-10.2); Carbon Dioxide 32 mmol/L (22-30); Chloride 99 mmol/L (98-107); Estimated CRCL calculation 164 ml/min; Estimated Glomerular Filt Rate > 60; Glucose 124 mg/dL (65-110); Potassium 2.9 mmol/L (3.4-5.0); Sodium 137 mmol/L (137-145)
[2024-07-26] MEDS: methylPREDNISolone SOD SUCC 40 MG VIAL IV PUSH (09:13)
[2024-07-26 13:08] LABS: NIL 0.69 IU/mL; Quantiferon TB Plus, 1T NEGATIVE (NEGATIVE); TB1-NIL 0.22 IU/mL
--- NOTE | 2024-07-26 14:06 | WPDANESEPPF ---
Anes - Initial Pre Proc Eval Procedure: Operation Date: 07/26/24 15:30 Proposed Procedures p Colonoscopy - Gerald Chanel MD Date/Time: 07/26/24 14:06 Surgeon: Judy Blackburn APRN Pre Op Diagnosis: Ileal enteritis, Intrahepatic gas, Concern for inf Patient Data Age: 23 Gender: M Height: 1.88 m Weight: 82.4 kg Last Vital Signs Temp 36.1 C L 07/26/24 05:50 Pulse 83 07/26/24 05:50 Resp 18 07/26/24 05:50 BP 117/85 07/26/24 05:50 Pulse Ox 100 07/26/24 05:50 O2 Del Method Room Air 07/26/24 09:10 Allergies Allergy/AdvReac Type Severity Reaction Status Date / Time No Known Allergies Allergy Verified 07/20/24 15:53 Home Medications Medication Instructions Recorded Confirmed Type ibuprofen 100 mg/5 mL oral 600 mg (30 mL) PO TID PRN fever 7 05/19/24 07/20/24 Rx suspension (Children's Ibuprofen) days #473 mL Laboratory Tests 07/21/24 07/26/24 13:34 06:49 WBC 8.1 K/mm3 (4.5-10.0) RBC 5.12 M/mm3 (4.6-6.20) Hgb 13.5 L g/dL (14.0-18.0) Hct 42.9 % (42.0-52.0) MCV 83.8 fl (80-100) MCH 26.4 pg (26-34) MCHC 31.5 L g/dl (32-36) RDW 12.9 % (11.5-14.5) Plt Count 443 H k/mm3 (150-375) MPV 9.7 fl (7.4-10.4) Immature Gran % (Auto) 3.7 H % (0-0.5) Neut % (Auto) 71.5 % (45.5-73.1) Lymph % (Auto) 12.9 L % (18.3-44.2) [place] % (Auto) 10.4 H % (2.6-8.5) Eos % (Auto) 0.5 % (0-4.4) Baso % (Auto) 1.0 % (0.2-1.2) Lymph # (Auto) 1.04 K/mm3 (0.9-3.2) [place] # (Auto) 0.8 H K/mm3 (0.1-0.6) Eos # (Auto) 0.0 K/mm3 (0-0.3) Baso # (Auto) 0.1 K/mm3 (0.0-0.1) Abs Immat Gran (auto) 0.30 H K/mm3 (0.00-0.031) Absolute Neuts (auto) 5.8 K/mm3 (1.3-6.7) Absolute Nucleated RBC 0.000 K/mm3 (0.0-0.012) Nucleated RBC % 0.0 % (0.0-0.2) Sodium 137 mmol/L (137-145) Potassium 2.9 L mmol/L (3.4-5.0) Chloride 99 mmol/L (98-107) Carbon Dioxide 32 H mmol/L (22-30) Anion Gap 6 mmol/L (4-12) BUN 10 mg/dL (9-20) Creatinine 0.70 mg/dL (0.7-1.3) Estim Creat Clear Calc 164 ml/min Estimated GFR > 60 (59 - ) Glucose 124 H mg/dL (65-110) Calcium 8.6 mg/dL (8.4-10.2) Total Bilirubin 0.4 mg/dL (0.2-1.3) AST 69 H U/L (17-59) ALT 60 H U/L (6-50) Alkaline Phosphatase 75 U/L (38-126) Total Protein 7.0 g/dL (6.3-8.2) Albumin 4.0 g/dL (3.5-5.1) TB Test (QFT) Gold Plus Negative (NEGATIVE) TB Test (QFT) Nil 0.69 IU/mL TB Test Mitogen - Nil 4.85 IU/mL TB Test Ag - Nil 1 0.22 IU/mL TB Test Ag - Nil 2 0.20 IU/mL Patient hx anesthesia problems: none Family hx anesthesia problems: none Results Review: All pre-operative results and documents have been reviewed as part of the pre-operative evaluation. [facility] Past Medical History Medical History Acute gastritis Chronic headaches Crohn's colitis Diarrhea Impingement syndrome, shoulder, left Labral tear of hip joint Labral tear of long head of left biceps tendon Left shoulder pain Nausea & vomiting Scapular dysfunction Scoliosis of thoracic spine Seasonal allergies Stomach pain Subacromial bursitis of left shoulder joint Vision abnormalities Social History Social History Smoking status: Never smoker Alcohol intake: never Substance use: unknown Do You Feel Safe in your Home?: Yes Lack of Transportation: No Lack of Food: Never True Current Housing: I Have Housing Concerned About Future Housing: No Difficulty Paying Gas/Electric Bills: No Difficulty Paying for Meds: No Currently Unemployed: No Education: High School Diploma/GED Difficulty w/ Childcare or Family Care: No Occupation/Education: occupation 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 Gender identity (if verbalized by the patient): Male Spiritual care concerns: No Anes - Eval Final PreProcedure Day of Procedure 07/26/24 14:06 Patient weight: normal Heart: regular rate and rhythm Lungs: clear to auscultation Airway: Mallampati scale class II Neurological: alert and oriented Last oral intake: >/= 8 hours ASA classification: III Emergent: no Anesthetic plan: proceed Anesthesia type and monitoring: general GIVS and standard monitoring Results Review: All pre-operative results and documents have been reviewed as part of the pre-operative evaluation. Informed Consent: The patient's anesthetic plan and its attendant risks and benefits were discussed with the patient/family/POA. Questions were solicited and answers provided to the satisfaction of the patient/family/POA.
[2024-07-26 14:07] VITALS: BP 123/86; PULSE 82; RESP 18; TEMP 36.1; O2SAT 99
[2024-07-26] MEDS: LACTATED RINGERS 1,000 ML 150 ML IV CONT (14:17)
[2024-07-26 14:51] VITALS: BP 103/65; PULSE 88; RESP 20; O2SAT 96
[2024-07-26 15:01] VITALS: BP 102/62; PULSE 87; RESP 18; O2SAT 96
[2024-07-26 15:11] VITALS: PULSE 78; RESP 17; O2SAT 96
--- NOTE | 2024-07-26 15:38 | P.DS_ITS ---
DS: Admitting Diagnosis Discharge Date 07/26/24 Admitting Diagnosis Sepsis Inflammatory bowel disease Crohn's colitis Regional enteritis of ileum Anemia DS: Discharge Diagnosis Discharge Diagnosis (1) Sepsis: Code(s): A41.9 - Sepsis, unspecified organism Status: Acute (2) Bowel disease, inflammatory: Code(s): K52.9 - Noninfective gastroenteritis and colitis, unspecified Status: Acute (3) Crohn's colitis: Code(s): K50.10 - Crohn's disease of large intestine without complications Status: Acute (4) Regional enteritis of ileum: Code(s): K50.00 - Crohn's disease of small intestine without complications Status: Acute (5) Anemia: Code(s): D64.9 - Anemia, unspecified Status: Acute DS: Summary Hospital Course Reason for hospitalization: Sepsis Inflammatory bowel disease Crohn's colitis Regional enteritis of ileum Anemia Hospital Course: This is a 23-year-old with no significant past medical history who presents with abdominal pain, fever, vomiting, and diarrhea. Patient states that he has had abdominal pain off and on for quite some time. He had been evaluated in the ER back in April and diagnosed with enteritis. He was sent home with antibiotics which cleared up his symptoms. He started having symptoms again about 5 days ago with fever, up to 103, severe abdominal pain, nausea, vomiting, and diarrhea. He also noted to have an EGD as an outpatient which did not show any significant findings. He does report acid reflux, abdominal pain, diarrhea c urrently. He denies any nausea, vomiting, chest pain, shortness of breath. He denies any family history of Crohn's disease or inflammatory bowel disorders. He presented here for further evaluation. Workup in the hospital included a CT of the abdomen and pelvis which shows ileal enteritis with adjacent phlegmon/early abscess and possible fistulous connection to the adjacent sigmoid, intrahepatic gas concerning for portal venous gas which can be seen with ischemic bowel, inflammatory bowel disease, or pelvic abscess. Pelvis MRI shows terminal ileitis with fistula to the wall of the rectosigmoid concerning with Crohn's disease. Abdomen MRI showed partially visualized terminal ileitis concerning with Crohn's disease. Initial labs showed a normal white blood cell count of 6.6, hemoglobin 13.2, ESR 81, sodium 134, chloride 97, lactic acid was 0.9, C reactive protein 13.8, lipase was normal at 36. UA was obtained which showed 1+ urine protein, 3+ urine ketones otherwise negative. Stool culture was obtained and pending. He was also check for C diff and was positive. Hepatitis-B antigen was negative. TB was also ordered and pending. EKG showed sinus tach with a rate of 118, incomplete right bundle branch. He was given 1 L of LR, Zofran, Toradol while in the ED. he was started on Cipro and Flagyl while in the ED and then started on vancomycin when he was found to be C diff positive. GI was consulted and took patient for colonoscopy with biopsy today. His VSS, he is afebrile, currently on room air. He is stable for discharge at this time. He will need to finish prednisone taper, vancomycin, and Flagyl as directed. He will need to follow up with GI in 2 weeks. TB test was negative. Final diagnosis: Sepsis, Crohn's colitis, ileitis Status at Discharge Cognitive/behavioral status at discharge: Alert oriented x4 Functional status at discharge: independent ambulation Overall status at discharge: patient is progressing back to baseline Time Spent with Patient Time attestation: Total time spent providing and/or coordinating discharge services: Time spent: Greater than 30 minutes Exam Narrative: General: In no acute distress, well nourished Cardiac: Normal S1 and S2. No murmur, gallops or friction rubs, peripheral pulses intact. Respiratory: Lungs clear to auscultation, no adventitious lung sounds, currently on room air Gastrointestinal: soft, non-distended, non-tender, normoactive bowel sounds. : voiding without difficulty. Neuro: Alert and oriented x4 DS: Data Data Completed and Pending Completed studies during hospitalization: Abdomen MRI Pelvis MRI Abdomen/pelvis CTA Pending studies at discharge: Pending at discharge 07/26/24 14:49 Surgical [PTH] Routine Labs on day of discharge: Labs from last 24 hours 07/26/24 07/21/24 06:49 13:34 WBC 8.1 RBC 5.12 Hgb 13.5 L Hct 42.9 MCV 83.8 MCH 26.4 MCHC 31.5 L RDW 12.9 Plt Count 443 H MPV 9.7 Immature Gran % (Auto) 3.7 H Neut % (Auto) 71.5 Lymph % (Auto) 12.9 L [place] % (Auto) 10.4 H Eos % (Auto) 0.5 Baso % (Auto) 1.0 Lymph # (Auto) 1.04 [place] # (Auto) 0.8 H Eos # (Auto) 0.0 Baso # (Auto) 0.1 Abs Immat Gran (auto) 0.30 H Absolute Neuts (auto) 5.8 Absolute Nucleated RBC 0.000 Nucleated RBC % 0.0 Sodium 137 Potassium 2.9 L Chloride 99 Carbon Dioxide 32 H Anion Gap 6 BUN 10 Creatinine 0.70 Estim Creat Clear Calc 164 Estimated GFR > 60 Glucose 124 H Calcium 8.6 Total Bilirubin 0.4 AST 69 H ALT 60 H Alkaline Phosphatase 75 Total Protein 7.0 Albumin 4.0 TB Test (QFT) Gold Plus Negative TB Test (QFT) Nil 0.69 TB Test Mitogen - Nil 4.85 TB Test Ag - Nil 1 0.22 TB Test Ag - Nil 2 0.20 Preliminary micro results at discharge 07/21/24 16:04 Blood Culture - Preliminary Blood 07/21/24 16:04 Blood Culture - Preliminary Blood Procedures/Treatments: Colonoscopy with biopsy Discharge Plan Discharge Attending physician on discharge: James Copeland Consulting providers: Steffen Ty Discharging Clinician: Judy Blackburn Anticipated Discharge Date/Time: 07/26/24 15:33 Patient Disposition: Home, Self-Care Activity: as tolerated Diet: as tolerated and high fiber Discharge Instructions: * Finish all of your antibiotics as directed even if you are feeling better * Follow up with GI in 2 weeks. * Finish prednisone taper * You can slowly increase your diet back to high fiber diet. Patient Instructions: Antibiotic Form, Crohn Disease (DC), High Fiber Diet (DC), Pain Management (DC), C. Diff (Clostridioides Difficile) Infection (DC) Patient Language: Sammarinese Stand Alone Forms: General Discharge Information Follow-up/Referrals: Steffen Ty MD [Physician] - 2 Weeks Discharge Medications: New vancomycin 1,000 mg Recon Soln 125 mg PO Q6HR Qty: 20 0RF metronidazole 500 mg tablet 500 mg PO Q8H 7 Days Qty: 15 0RF prednisone 10 mg tablet 10 mg PO DAILY Qty: 18 0RF Rx Instructions: Take 30 mg (3 pills)for next 3 days starting tomorrow, Then decrease to 20 mg (2 pills) for next 3 days, Then decrease to 10 mg (1 pill) for next 3 days, Then discontinue Held ibuprofen [Children's Ibuprofen] 100 mg/5 mL suspension 600 mg PO TID PRN (Reason: fever) 7 Days Qty: 473 0RF Hold Instructions: Resume on 08/02/24. Hold this medication for 1 week due to risk of bleeding after your procedure. Date of admission: 07/20/24 17:08 Primary Care Provider: UNKNOWN,DOCTOR Admitting Provider: Sera Curtis Attending physician on admission: Judy Blackburn Condition: Improved Quality VTE Prophylaxis VTE prophylaxis: mechanical ordered Hospitalist MIPS Heart Failure (Exclusion) Patient has history of Heart Transplant or Left Ventricular Assistive Device?: No IF YES, STOP HERE Heart Failure (Qualifier) Patient has current or prior documentation of LVEF less than or equal to 40%, or mod/servere depressed LVSF?: No IF NO, STOP HERE
[2024-07-26 16:11] VITALS: BP 122/80; PULSE 77; RESP 17; TEMP 36.4; O2SAT 99
[2024-07-26] MEDS: POTASSIUM CHLORIDE 20 MEQ ER TABLET 40 MEQ PO (16:12)
[2024-07-30 00:33] LABS: Calprotectin, Stool 663 mcg/g
[2024-07-30 18:29] LABS: TPMT Activity 15
== END 2024-07-26 16:50 | disposition home or self-care (01) | DRG 872 ==
LOC: ANHED 18:47 → ANH3MEDSUR 19:07
PROVIDERS: Internal Medicine Gastroenterology; Admitting Provider Internal Medicine; Emergency Provider Student in an Organized Health Care Education/Training Program; Visit Provider Nurse Practitioner Acute Care
PROC: 0DJD8ZZ Inspection of Lower Intestinal Tract, Via Natural or Artificial Opening Endoscopic (ICD-10-PCS; CPT 45378; principal; 2024-07-26 15:30)
DX: A41.9 Sepsis, unspecified organism (principal); K50.013 Crohn's disease of small intestine with fistula; A04.72 Enterocolitis due to Clostridium difficile, not specified as recurrent; D50.9 Iron deficiency anemia, unspecified; E53.8 Deficiency of other specified B group vitamins; M75.42 Impingement syndrome of left shoulder; M41.9 Scoliosis, unspecified
CPT/HCPCS: 36415; 72197; 74177; 74183; 80053; 81001; 82607; 82657; 82728; 82746; 83540; 83550; 83605; 83690; 83993; 84439; 84443; 84480; 85025; 85652; 86140; 86480; 87040; 87045; 87340; 87427; 87449; 87493; 88305; 96361; 96374; 96375; 99285; A9270; A9577; J0744; J1756; J1836; J1885; J2003; J2405; J2704; J2919; J3420; J7050; J7120; Q9967